=== PATIENT | female | born 1930 | race Caucasian/White ===

== ENCOUNTER 2017-02-06 21:53 | Inpatient (IN) | payer OTHER, BC ==
[~2017-02-06] VITALS: Ht 160 cm; Wt 67.9 kg
--- NOTE | ~2017-02-06 | HC ---
[facility] [place] [address] CONSULTATION Name: PETROS MCCAULEY Room #: 435-P [facility] IN ..#: [id number] Admission: 02/06/17 Attend Phys: Erickson Cam MD Discharge: Date of : 30 Report #: [id number] THIS REPORT FOR: //name// CC: Erickson Hinton DATE OF SERVICE: 02/07/2017 HISTORY OF PRESENT ILLNESS: The patient is an 86-year-old white female with a history of Parkinson's disease diagnosed approximately 6 months ago was nevertheless ambulatory without gait aids then began having falls x 2. She was noted to be letting her dog out and was too weak to stand. She had an earlier fall on a basement step and was nevertheless able to get herself backup. After the second fall, she ended up crawling on the floor and yelling for help. Denied any tripping. She was noted to have multiple bruises in knees, right chest, right orbit, forehead, and right arm. She has been admitted for further assessment and we are seeing her in rehabilitation medicine consultation. Right shoulder x-rays were negative as well as the knee, chest and the facial/orbital CT. CT of the head showed no acute intracranial process. There was note of a head injury, although no actual loss of consciousness. PAST MEDICAL HISTORY: Includes diagnosis of Parkinson's disease in July 2016. She has a history of diabetes mellitus, hypertension, hyperlipidemia, breast cancer with right lumpectomy, bladder CA with surgery, right arm fracture in 2014. MEDICATIONS: Please see the full medication listing. HABITS: No history of tobacco, alcohol abuse. ALLERGIES: SULFA. SOCIAL HISTORY: Lives in a house, one level 2 steps, used to walk just the last couple of days. There is a daughter who lives in the area and a son lives in [facility] area as well. REVIEW OF SYSTEMS: She has some right shoulder discomfort. Complains of generalized weakness. No chest pain, shortness of breath, or abdominal discomfort. PHYSICAL EXAMINATION: GENERAL: An 86-year-old white female in no obvious distress. HEENT: Some mild evidence of mass to facies, otherwise, facies appeared symmetric. VITAL SIGNS: Temperature is 98.2, pulse 88, respirations 24, blood pressure 134/63. [facility] [address] [place] [address] CONSULTATION Name: PETROS MCCAULEY Room #: 435-P [facility] IN .R.#: [id number] Admission: 02/06/17 Attend Phys: Erickson Cam MD Discharge: Date of : 30 Report #: [id number] NEUROLOGIC: She is alert, appropriate tends to favor moving that right upper extremity, has some overall soreness, I could not detect any obvious focal weakness, but was somewhat difficult to test with discomfort. No obvious focal weakness of left upper extremity. Lower extremities, no focal calf swelling. Strength is probably a grade 4- to 3+/5. She does have evidence for some cogwheeling of the elbow and wrists. ASSESSMENT: An 86-year-old white female with the following problem list: 1. Parkinson's disease. 2. Head injury without loss of assessments. 3. Gait instability with recent falls. 4. Multiple ecchymoses as noted above. 5. Diabetes mellitus type 2. 6. Hypertension. 7. Hyperlipidemia. 8. Breast carcinoma with right lumpectomy. 9. Prior right arm fracture, 2013. 10. Bladder cancer with surgery. PLAN: Therapy evaluations are underway. She is certainly may be a candidate for a short acute 5-North inpatient rehabilitation stay. At this point, we will see how she does in therapies and follow along with you. Discussion was held with the patient's daughter and son. By: [id number] Reen Miller MD /
[2017-02-06 21:55] VITALS: BP 105/66
[2017-02-06 23:28] LABS: HEMATOCRIT 31.8 % (37.0-47.0); HEMOGLOBIN 10.7 gm/dL (12.0-15.0); MCH 28.3 pg (26.0-34.0); MCHC 33.6 g/dL (28.0-37.0); MCV 84.2 fL (80.0-100.0); PLATELET COUNT 190 thou/uL (150-400); RBC 3.78 mil/uL (4.20-5.00); RDW 13.9 % (10.5-14.5); WBC 16.4 thou/uL (4.0-11.0)
[2017-02-06 23:39] LABS: POTASSIUM 4.3 mmol/L (3.5-5.1)
[2017-02-06 23:42] LABS: MANUAL DIFF YES
[2017-02-06 23:43] LABS: APTT 19.4 Seconds (24.5-32.8); PROTIME 10.1 Seconds (9.3-11.4)
[2017-02-07 00:11] LABS: ABSOLUTE NEUTROPHILS 14.1 thou/uL (1.4-8.2); METAMYELOCYTES 1 %; TOTAL CELL COUNT 100
[2017-02-07 00:20] VITALS: BP 137/84
[2017-02-07 04:56] VITALS: BP 122/64
[2017-02-07 05:09] LABS: URINE RBC None Seen /HPF (0-2); URINE WBC-REFLEX 0-5 Rare /HPF (0-5)
[2017-02-07 05:10] LABS: CRYSTALS None Seen /LPF (None Seen); HYALINE CASTS 0-3 Few /LPF (None Seen); SQUAMOUS None Seen /LPF (0-3); TRANSITIONAL EPITHEL CELL 0-3 Few /LPF (None Seen)
[2017-02-07 05:14] LABS: URINE BILIRUBIN NEGATIVE (Negative); URINE BLOOD TRACE (Negative); URINE COLOR YELLOW; URINE GLUCOSE-RANDOM* NEGATIVE (Negative); URINE KETONES TRACE (Negative); URINE PROTEIN (DIPSTICK) NEGATIVE (Negative); URINE SPECIFIC GRAVITY 1.015 (1.003-1.035); URINE UROBILINOGEN 0.2 E.U./dl (0.2-1.0)
[2017-02-07 05:16] LABS: URINE LEUKOCYTES-REFLEX 1+ (Negative)
[2017-02-07 08:00] VITALS: BP 134/63
[2017-02-07] MEDS ORDERED: LISINOPRIL-HCT1 EAC1 PO (09:54)
[2017-02-07] MEDS ORDERED: AMLODIPINE BESY10 MG PO ×2 (09:55→10:00)
[2017-02-07] MEDS ORDERED: JANUVIA 50 MG T50 M1 PO (09:56)
[2017-02-07] MEDS ORDERED: ATIVAN0.5 MG PO (09:57)
[2017-02-07] MEDS ORDERED: XALATAN2.5 ML OPHTHALMIC (09:58)
[2017-02-07] MEDS ORDERED: SINEMET 25-1001 EAC1 PO (09:58)
[2017-02-07] MEDS ORDERED: VITAMIN B-12500 MCG PO (10:01)
[2017-02-07] MEDS ORDERED: VITAMIN D2000 UNIT PO (10:02)
[2017-02-07] MEDS ORDERED: KLOR-CON 1010 MEQ PO (10:02)
[2017-02-07] MEDS ORDERED: REMERON15 MG PO (10:03)
[2017-02-07] MEDS ORDERED: PAMELOR25 MG PO (10:04)
[2017-02-07] MEDS ORDERED: METFORMIN HCL500 MG PO (10:05)
[2017-02-07] MEDS ORDERED: CRESTOR10 MG PO (10:06)
[2017-02-07 11:27] LABS: HEMATOCRIT 27.6 % (37.0-47.0); HEMOGLOBIN 9.5 gm/dL (12.0-15.0); MCH 29.1 pg (26.0-34.0); MCHC 34.6 g/dL (28.0-37.0); MCV 84.1 fL (80.0-100.0); RBC 3.28 mil/uL (4.20-5.00); WBC 8.5 thou/uL (4.0-11.0)
[2017-02-07 11:35] LABS: CALCIUM 8.4 mg/dL (8.5-10.1); CREATININE 1.2 mg/dL (0.6-1.0)
[2017-02-07 11:37] LABS: POTASSIUM 3.3 mmol/L (3.5-5.1)
[2017-02-07 15:52] VITALS: BP 124/53
[2017-02-07 17:45] LABS: MAGNESIUM 1.4 mg/dL (1.8-2.4); POTASSIUM 3.7 mmol/L (3.5-5.1)
[2017-02-07 19:39] VITALS: BP 131/61
[2017-02-08 01:15] VITALS: BP 124/53
[2017-02-08 04:01] VITALS: BP 134/62
[2017-02-08 06:53] LABS: HEMATOCRIT 29.5 % (37.0-47.0); HEMOGLOBIN 9.9 gm/dL (12.0-15.0); MCH 28.7 pg (26.0-34.0); MCHC 33.6 g/dL (28.0-37.0); MCV 85.3 fL (80.0-100.0); PLATELET COUNT 164 thou/uL (150-400); RBC 3.46 mil/uL (4.20-5.00); RDW 13.9 % (10.5-14.5); WBC 7.5 thou/uL (4.0-11.0)
[2017-02-08 06:58] LABS: MANUAL DIFF YES
[2017-02-08 07:00] LABS: CALCIUM 7.9 mg/dL (8.5-10.1); CREATININE 1.1 mg/dL (0.6-1.0); MAGNESIUM 1.4 mg/dL (1.8-2.4); POTASSIUM 3.7 mmol/L (3.5-5.1)
[2017-02-08 08:00] VITALS: BP 146/66
[2017-02-08 08:50] LABS: TOTAL CELL COUNT 100
[2017-02-08 08:51] LABS: ANISOCYTOSIS 1+
[2017-02-08] MEDS ORDERED: HUMALOG100 UNIT/1 SUBQ (11:28)
[2017-02-08] MEDS ORDERED: ROCEPHIN 11 GM/1001 IV (11:29)
== END 2017-02-08 14:47 | DRG 56 ==
LOC: ER 21:53 → 4S 23:21 → EROBS 23:21 → 4S 02-07 00:05
PROVIDERS: Emergency Medicine; Internal Medicine; Nurse Practitioner Family
DX: G20 Parkinson's disease (principal); E43 Unspecified severe protein-calorie malnutrition; N17.0 Acute kidney failure with tubular necrosis; E11.9 Type 2 diabetes mellitus without complications; I10 Essential (primary) hypertension; S09.90XA Unspecified injury of head, initial encounter; D72.829 Elevated white blood cell count, unspecified; T14.8 Other injury of unspecified body region; D72.825 Bandemia; R58 Hemorrhage, not elsewhere classified; E78.5 Hyperlipidemia, unspecified; Z85.3 Personal history of malignant neoplasm of breast; Z87.81 Personal history of (healed) traumatic fracture; Z88.2 Allergy status to sulfonamides; W10.8XXA Fall (on) (from) other stairs and steps, initial encounter; Y93.89 Activity, other specified; Y92.89 Other specified places as the place of occurrence of the external cause; Y99.8 Other external cause status
CPT/HCPCS: 10195

== ENCOUNTER 2017-02-08 11:34 | Inpatient (IN) | payer OTHER, BC ==
[~2017-02-08] VITALS: Ht 160 cm; Wt 69.0 kg
--- NOTE | ~2017-02-08 | PLAN ---
[facility] [place] [address] [address] REHAB UNIT PLAN OF CARE Name: MCCAULEYPETROS Room #: 510-P [facility] IN M.R.#: [id number] Admission: 02/08/17 Attend Phys: Rene Miller MD Discharge: 02/21/17 Date of : 30 Report #: [id number] THIS REPORT FOR: //name// CC: Rene Saueruel [facility] DATE OF SERVICE: 02/11/2017 SUBJECTIVE: The patient is seen back today in followup. She is in no distress. OBJECTIVE: VITAL SIGNS: Temperature 36.8, pulse 85, respirations 16, blood pressure 132/69. GENERAL: She is alert, pleasant. EXTREMITIES: She feels that that right upper extremity discomfort has improved. She appears more alert. Transfers are contact guard. She is now ambulating 250 feet min assist with a front-wheeled walker. We have started to work on some stairs. In occupational therapy, lower body dressing has been max assist with socks and hose dependent. In speech therapy, she is noted to have mild comprehensive deficits. She has been on the IV antibiotics for urinary tract infection and magnesium has been supplementation. ASSESSMENT: 1. Parkinson's disease. 2. Head injury without loss of consciousness. 3. Gait instability with recent falls. 4. Multiple ecchymoses. 5. Diabetes mellitus type 2. 6. Hypertension. 7. Hyperlipidemia. 8. Breast cancer with right lumpectomy. 9. Prior right arm fracture in 2013. PLAN: The overall plan of care is based on the preadmission screen, post-admission physician evaluation and information garnered from therapy assessments. 1. Estimated length of stay is probably 7-14 days. 2. Medical prognosis is reasonably good. 3. Anticipated interventions includes the interdisciplinary acute inpatient rehabilitation program with PT and OT and speech, rehabilitation nursing assisting regarding medication management, skin care prophylaxis, bowel and bladder issues and nursing education. The men's custom hair piece consultant physicians will be involved. 4. Anticipated functional outcomes would be for the patient to ideally be modified independent at the walker level. 5. Discharge destination would be back home where she lives in a house. [facility] [address] [place] [address] REHAB UNIT PLAN OF CARE Name: PETROS MCCAULEY Room #: 510-P [facility] IN ..#: [id number] Admission: 02/08/17 Attend Phys: Rene Miller MD Discharge: 02/21/17 Date of : 30 Report #: [id number] 6. Expected therapy by discipline includes PT and OT and speech 1 hour per day each five days a week throughout the duration of the acute inpatient rehabilitation stay. By: [id number] [id number] Rene Miller MD /EFREN
--- NOTE | ~2017-02-08 | H ---
[facility] [place] [address] [place] [address] HISTORY AND PHYSICAL Name: MCCAULEYEPTROS Room #: 510-P [facility] IN .R.#: [id number] Admission: 02/08/17 Attend Phys: Rene Miller MD Discharge: 02/21/17 Date of : 30 Report #: [id number] THIS REPORT FOR: //name// CC: Rene Hinton DATE OF SERVICE: 02/09/2017 HISTORY AND PHYSICAL AND POSTADMISSION PHYSICIAN EVALUATION HISTORY OF PRESENT ILLNESS: The patient is an 86-year-old white female with a history of Parkinson's disease diagnosed approximately 6 months ago, was nevertheless ambulatory without gait aids, then began having falls x 2. She was noted to be letting her dog out and was too weak to stand. She had an earlier fall on a basement step and was nevertheless able to get herself back up at that time. After the second fall; however, she ended up crawling on the floor and yelling for help. Denied any tripping. She was noted to have multiple bruises on her knees, right chest, right forehead and right arm. She was admitted for further assessment. Shoulder x-rays were negative as well as the knee, chest and facial orbital CT. CT of the head showed no acute intracranial process. There was note of a head injury, although no actual loss of consciousness. The patient was noted to have a significant decline with her functional mobility and ADL independence with her Parkinson's disease and gait instability and falls. She has been admitted for acute in-hospital inpatient rehabilitation. PAST MEDICAL HISTORY: Includes the diagnosis of Parkinson's disease in 07/2016. She has a history of diabetes mellitus, hypertension, hyperlipidemia, breast cancer with right lumpectomy, bladder CA with surgery and right arm fracture in 2013. MEDICATIONS: Each of the medications was individually reconciled upon admission. The list does include vitamins, herbals and supplementation, etc. HABITS: No history of tobacco or alcohol abuse. ALLERGIES: SULFA. SOCIAL HISTORY: Lives in a house, one level, two steps. Has used a walker just the last couple of days prior to admission. There is a daughter who lives in the area and a son that lives in the [facility] area as well. REVIEW OF SYSTEMS: She still has some generalized aching involving her right upper extremity and lower extremities from the crawling on the floor. She denies any chest pain, shortness of breath, no abdominal discomfort. She did not offer any complaints of any bowel or bladder changes. [facility] [address] [place] [address] HISTORY AND PHYSICAL Name: PETROS MCCAULEY Room #: 510-P [facility]#: [id number] Admission: 02/08/17 Attend Phys: Rene Miller MD Discharge: 02/21/17 Date of : 30 Report #: [id number] PHYSICAL EXAMINATION: GENERAL: An 86-year-old white female, in no obvious distress. The patient was seen earlier. She was sleepy, but would arouse. VITAL SIGNS: Temperature 98.4, pulse 85, respirations 16, blood pressure 131/72. The patient was seen earlier. She was sleepy, but would arouse. HEENT: Facies revealed some evidence of mass, appeared symmetric. CHEST: Sounded clear to auscultation. CARDIOVASCULAR: Regular rate and rhythm. ABDOMEN: Bowel sounds positive, nontender. GENITOURINARY AND RECTAL: Deferred. NEUROLOGICAL: She still has some discomfort with moving the right upper extremity with some overall soreness. No obvious focal weakness. No obvious focal weakness to the left upper. Lower extremities, no focal calf swelling with strength probably a grade 3+ to 4-. She continues with some cogwheeling, elbows and wrists. ASSESSMENT: An 86-year-old white female with the following problem list: 1. Parkinson's disease. 2. Head injury with loss of ____. 3. Gait instability with recent falls. 4. Multiple ecchymoses. 5. Diabetes mellitus type 2. 6. Hypertension. 7. Hyperlipidemia. 8. Breast carcinoma with right lumpectomy. 9. Prior right arm fracture in 2013. 10. Bladder cancer with surgery. PLAN: The patient is admitted for acute in-hospital inpatient rehabilitation. From a postadmission physician evaluation perspective, there are no relevant changes since the preadmission screening. Please see the above review of prior and current medical and functional conditions and comorbidities. Please see the patient's previous and current functional status. As far as risk of complication, she has the above noted comorbidities. Initial plan of care involves the interdisciplinary acute inpatient rehabilitation program with the goal of maximizing the patient's functional independence, so that she can hopefully return back to her prior living situation. Measurable functional goals would be for her to become modified independent ideally at least at the walker level, so that she can return back home. Prognosis is reasonably good. Estimated length of stay is probably at least 10 days to 2 weeks pending progress. Potential barriers would include her multiple medical comorbidities and decreased functional status. The patient meets diagnostic criteria for an acute in-hospital inpatient rehabilitation stay. She meets medical necessity criteria and we will have the ada accommodation consultant physicians follow along. She does have the tolerance for an acute [facility] [address] [place] [address] HISTORY AND PHYSICAL Name: PETROS MCCAULEY Room #: 510-P [facility] IN M.R.#: [id number] Admission: 02/08/17 Attend Phys: Rene Miller MD Discharge: 02/21/17 Date of : 30 Report #: [id number] in-hospital inpatient rehabilitation stay and has appropriate discharge goals back to the home setting. By: [id number] Rene Miller MD /EFREN
--- NOTE | ~2017-02-08 | HC ---
[facility] [place] [address] CONSULTATION Name: PETROS MCCAULEY Room #: 510-P [facility] IN .R.#: [id number] Admission: 02/08/17 Attend Phys: Rene Miller MD Discharge: Date of : 30 Report #: [id number] THIS REPORT FOR: //name// CC: Rene Miller Thuan Speedyidania DATE OF SERVICE: 02/09/2017 NEUROBEHAVIORAL STATUS EXAM AGE: 86. ATTENDING PHYSICIAN: Rene Miller M.D. TABLE GAMES DUAL RATE SUPERVISOR: Stanislav Dennis, PhD CLINICAL PRESENTATION: The patient is an 86-year-old female admitted to the rehabilitation unit at [facility] for comprehensive inpatient rehabilitation program to improve functional mobility, activities of daily living and self-care and mental status secondary to concussion as a result of a Parkinson's disease. The patient reportedly had been falling at her home. Most recently, she fell backward when letting her dog out of the house. The patient struck the back of her head and struggled in obtaining help. She does not report retrograde or anterograde amnesia surrounding her fall. Her past medical history includes Parkinson's diagnosis on 07/30/2016, diabetes mellitus, hypertension, hyperlipidemia, breast cancer with right lumpectomy, bladder CA with surgery and a right arm fracture in 2013. A complete description of her medical condition and history along with medications can be found in her medical record. Neuropsychological consultation was requested to provide assistance in the assessment of cognitive and emotional status and to provide recommendations and services. Prior to this most recent event, she was living independently in her own home. The patient reports being independent with instrumental activities of daily living. She was driving and managing her finances and medication. She has five children. Her about 8 years ago. Four children live within the [place] area. 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 There is no prior history of cognitive deficits. Previous treatment for depression is reported in 1996 following the diagnosis of breast cancer. TECHNIQUES UTILIZED: Clinical interview, review of medical records, staff consultation and behavioral observation, mini mental status exam 2 standard version, clock drawing, calibrated ideational fluency assessment (letter and category) and brief abstract reasoning test. [facility] [address] [place] [address] CONSULTATION Name: PETROS MCCAULEY Room #: 510-P [facility] IN [facility].#: [id number] Admission: 02/08/17 Attend Phys: Rene Miller MD Discharge: Date of : 30 Report #: [id number] EXAMINATION FINDINGS: The patient was alert and cooperative with the assessment. She accurately described events surrounding her admission. There is no evidence of aphasia. Her thoughts are logical and goal oriented. She does not report auditory or visual hallucinations. She describes feeling discouraged and in quite a bit of pain at this time. Difficulty with word finding, decreased appetite and fatigue are reported. She indicates that sleep and memory are within normal limits. Her performance on the MMSE 2 brief version was in the mild range of impairment with a raw score of 13 of 16 and a score at 38. She was 3/3 for initial registration, 5/5 for orientation to time and 5/[address]. She was 0/3 for immediate recall of 3 items after a brief time delay and distraction. Her performance on the MMSE 2 standard version was in the mild range of impairment with a raw score of 23 and T score at 36. She was 2/5 for serial sevens. The patient was 2/2 for naming, 1/1 for repetition and 3/3 for comprehension. She could read and follow a single command and write a sentence. The patient was unable to copy a simple geometric design. Performance on verbal fluency indicates functioning within normal limits. Letter fluency was in the average range with a T score of 44, category fluency was average with a T score of 45, total verbal fluency score was 44, which is in the average range. Brief abstract reasoning test suggest impairment with a raw score at 2 of 8. Difficulty with attention/concentration, immediate memory and higher level abstract reasoning is suggested by her performance on the assessment. 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 RECOMMENDATIONS: Continued speech therapy to assist with development and implementation of compensatory strategies for memory, attention and concentration. She will benefit from increased assistance in the management of nutrition, medication and finances upon discharge. The patient should discontinue driving until and more full recovery is achieved. Followup neuropsychological evaluation in approximately 3-6 months to clarify any lingering symptoms of cognitive disorder. Reassurance along with relaxation techniques will assist in the management of anxiety. [address] [address] CONSULTATION Name: PETROS MCCAULEY Room #: 510-P [facility] IN M.R.#: [id number] Admission: 02/08/17 Attend Phys: Rene Miller MD Discharge: Date of : 30 Report #: [id number] Thank you very much for allowing me to provide the consultation on this patient. <ELECTRONICALLY SIGNED> By: Stanislav Dennis, PhD 02/10/17 1409 1335 [id number] Stanislav Dennis, PhD /nt
[~2017-02-08 11:34] MED LIST: AMLODIPINE BESY10 MG PO; ATIVAN0.5 MG PO; CRESTOR10 MG PO; HUMALOG100 UNIT/1 SUBQ; JANUVIA 50 MG T50 M1 PO; KLOR-CON 1010 MEQ PO; LISINOPRIL-HCT1 EAC1 PO; METFORMIN HCL500 MG PO; PAMELOR25 MG PO; REMERON15 MG PO; ROCEPHIN 11 GM/1001 IV; SINEMET 25-1001 EAC1 PO; VITAMIN B-12500 MCG PO; VITAMIN D2000 UNIT PO; XALATAN2.5 ML OPHTHALMIC
[2017-02-08 14:10] VITALS: BP 145/72
[2017-02-08 19:48] VITALS: BP 131/72
[2017-02-09 06:02] LABS: HEMATOCRIT 28.7 % (37.0-47.0); HEMOGLOBIN 9.8 gm/dL (12.0-15.0); MCH 28.7 pg (26.0-34.0); MCHC 33.9 g/dL (28.0-37.0); MCV 84.6 fL (80.0-100.0); RBC 3.4 mil/uL (4.20-5.00); RDW 14.1 % (10.5-14.5); WBC 6.2 thou/uL (4.0-11.0)
[2017-02-09 06:12] LABS: CALCIUM 8.3 mg/dL (8.5-10.1); MAGNESIUM 1.6 mg/dL (1.8-2.4); POTASSIUM 3.6 mmol/L (3.5-5.1)
[2017-02-09 19:39] VITALS: BP 120/62
[2017-02-10 08:30] VITALS: BP 131/66
[2017-02-10 19:43] VITALS: BP 128/57
[2017-02-11 07:56] VITALS: BP 132/69
[2017-02-11 19:30] VITALS: BP 132/67
[2017-02-12 09:00] VITALS: BP 126/73
[2017-02-12 21:05] VITALS: BP 132/63
[2017-02-13 08:26] VITALS: BP 126/61
[2017-02-13 09:09] LABS: ABSOLUTE NEUTROPHILS 5.3 thou/uL (1.4-8.2); BASOPHILS 0.7 % (0.0-2.0); EOSINOPHILS 3.9 % (0.0-3.0); HEMATOCRIT 27.6 % (37.0-47.0); HEMOGLOBIN 9.5 gm/dL (12.0-15.0); LYMPHOCYTES 11.1 % (24.0-44.0); MCHC 34.4 g/dL (28.0-37.0); MCV 84.2 fL (80.0-100.0); MONOCYTES 10.6 % (1.0-8.0); PLATELET COUNT 235 thou/uL (150-400); POLYS 73.7 % (36.0-66.0); RBC 3.28 mil/uL (4.20-5.00); RDW 14.2 % (10.5-14.5); WBC 7.1 thou/uL (4.0-11.0)
[2017-02-13 09:12] LABS: MANUAL DIFF NO
[2017-02-13 09:21] LABS: CALCIUM 9.2 mg/dL (8.5-10.1); CREATININE 1.2 mg/dL (0.6-1.0); POTASSIUM 3.9 mmol/L (3.5-5.1)
[2017-02-13 20:02] VITALS: BP 126/69
[2017-02-14 22:32] VITALS: BP 126/63
[2017-02-15 08:00] VITALS: BP 120/57
[2017-02-15 21:07] VITALS: BP 136/74
[2017-02-16 07:59] VITALS: BP 137/61
[2017-02-16 20:31] VITALS: BP 126/69
[2017-02-17 10:57] VITALS: BP 121/51
[2017-02-17 19:15] VITALS: BP 128/63
[2017-02-18 04:00] LABS: HEMATOCRIT 28.3 % (37.0-47.0); HEMOGLOBIN 9.6 gm/dL (12.0-15.0); MCV 85.3 fL (80.0-100.0); PLATELET COUNT 218 thou/uL (150-400); RBC 3.32 mil/uL (4.20-5.00); RDW 14.6 % (10.5-14.5); WBC 7.4 thou/uL (4.0-11.0)
[2017-02-18 04:03] LABS: MANUAL DIFF YES
[2017-02-18 04:08] LABS: CALCIUM 8.6 mg/dL (8.5-10.1); CREATININE 1.2 mg/dL (0.6-1.0); POTASSIUM 3.4 mmol/L (3.5-5.1)
[2017-02-18 08:28] LABS: ABSOLUTE NEUTROPHILS 5.4 thou/uL (1.4-8.2); TOTAL CELL COUNT 100
[2017-02-18 08:29] LABS: ANISOCYTOSIS SLIGHT; POIKILOCYTOSIS SLIGHT
[2017-02-18 08:32] VITALS: BP 134/60
[2017-02-18 19:56] VITALS: BP 112/61
[2017-02-19 06:06] VITALS: BP 119/64; BP 122/68; BP 98/53
[2017-02-19 09:20] VITALS: BP 121/61
[2017-02-19 20:32] VITALS: BP 130/70
[2017-02-20 17:13] VITALS: BP 130/70
[2017-02-20 20:09] VITALS: BP 124/66
[2017-02-21 08:33] VITALS: BP 146/77
[2017-02-21] MEDS ORDERED: METFORMIN HCL500 MG PO (09:11)
[2017-02-21] MEDS ORDERED: COLACE100 MG PO (09:11)
[2017-02-21] MEDS ORDERED: REGLAN 10 MG TA10 MG PO (09:11)
[2017-02-21] MEDS ORDERED: MIRALAX17 GM PO (09:11)
[2017-02-21 10:28] VITALS: BP 130/70
== END 2017-02-21 15:39 | disposition home health service (06) | DRG 57 ==
LOC: ENTRNSPT 02-21 15:25 → EDTRNSPTSTS 02-21 15:27
PROVIDERS: Internal Medicine Endocrinology, Diabetes & Metabolism; Nurse Practitioner; Physical Medicine & Rehabilitation
DX: G20 Parkinson's disease (principal); N39.0 Urinary tract infection, site not specified; E11.9 Type 2 diabetes mellitus without complications; E78.5 Hyperlipidemia, unspecified; G31.84 Mild cognitive impairment of uncertain or unknown etiology; F43.22 Adjustment disorder with anxiety; S06.9X0A Unspecified intracranial injury without loss of consciousness, initial encounter; I10 Essential (primary) hypertension; H11.30 Conjunctival hemorrhage, unspecified eye; R26.81 Unsteadiness on feet; F32.9 Major depressive disorder, single episode, unspecified; E83.42 Hypomagnesemia; K59.00 Constipation, unspecified; Z85.3 Personal history of malignant neoplasm of breast; Z85.51 Personal history of malignant neoplasm of bladder; Y93.89 Activity, other specified; Y92.89 Other specified places as the place of occurrence of the external cause; Y99.8 Other external cause status; Z87.81 Personal history of (healed) traumatic fracture; Z91.81 History of falling; Z88.2 Allergy status to sulfonamides; Z83.3 Family history of diabetes mellitus
CPT/HCPCS: 10112

== ENCOUNTER 2018-10-30 10:17 | Inpatient (IN) | payer OTHER, BC ==
[~2018-10-30] VITALS: Ht 160 cm; Wt 65.8 kg
--- NOTE | ~2018-10-30 | HC ---
[facility] [place] [address] [place] [address] CONSULTATION Name: PETROS MCCAULEY Room #: 463-P [facility] IN ..#: [id number] Admission: 10/30/18 ������������������ Attend Phys: Erickson Cam MD Discharge: ������������������ Date of : 30 Report #: [id number] THIS REPORT FOR: //name// CC: Erickson Hinton DATE OF SERVICE: 11/04/2018 HISTORY OF PRESENT ILLNESS: The patient is an 88-year-old white female with a history of Parkinson's disease, diabetes mellitus, and hypertension. She is a premorbid walker ambulator with her Parkinson's. She did have a fall at home, landed on her back. She complained of significant mid lower back pain. She underwent imaging revealing subacute T5 compression fracture, chronic T7 and L4 compression fractures. She is currently scheduled for a kyphoplasty with Interventional Radiology. She has had increased low back pain and could not ambulate. It sounds like the back pain is doing somewhat better as she has done some limited ambulation with therapy. She has had an overall functional decline and we are seeing her in rehabilitation medicine consultation. PAST MEDICAL HISTORY: Includes Parkinson's disease diagnosed in July 2016, history of hypertension, hyperlipidemia, diabetes mellitus type 2, breast cancer with right lumpectomy. She has had bladder cancer with surgery. Denies any problems with voiding currently. She had a prior right arm fracture in 2013. MEDICATIONS: Please see the full medication listing, this includes vitamins, herbals, and supplements per report. ALLERGIES: SULFA. SOCIAL HISTORY: She lives in a house alone, 2 steps in. She used a walker. She does have involved family. She notes that she would be by herself and would need to be independent prior to returning back home. HABITS: No history of tobacco or alcohol abuse. REVIEW OF SYSTEMS: No current complaints of chest pain, shortness of breath or abdominal discomfort. She does have the low back pain as noted. She does have some gait problems with her Parkinson's. PHYSICAL EXAMINATION: GENERAL: She is a pleasant 88-year-old white female, in no obvious distress. She does have some evidence of masked facies. She appears appropriate and appears to be a good historian. VITAL SIGNS: Temperature 98.2, pulse 86, respirations 18, blood pressure 160/89. NEUROMUSCULOSKELETAL: Alert. She does have some evidence of cogwheeling of [facility] [address] [place] [address] CONSULTATION Name: PETROS MCCAULEY Room #: 463-P [facility] IN ..#: [id number] Admission: 10/30/18 ������������������ Attend Phys: Erickson Cam MD Discharge: ������������������ Date of : 30 Report #: [id number] both upper extremities, functional range of motion, strength is probably a grade 4-/5 to 3+/5. Lower extremities with functional range of motion, strength is probably a grade 3+ to 4-. Tone appeared to be intact. There is some rigidity noted. She moves somewhat slowly, but has been able to sit to stand with mod assist and ambulates up to 20 feet min assist x 2 with a front-wheeled walker. ASSESSMENT: An 88-year-old white female with the following problem list: 1. Parkinson's disease. 2. Compression fractures T5, T7. She is being evaluated for potential kyphoplasty. 3. Gait instability with falls. 4. Recent fall with inability to ambulate. She is now starting to do better. 5. Diabetes mellitus. 6. Hypertension. 7. History of breast cancer. 8. Bladder cancer with surgery. PLAN: Would anticipate that the patient would be a good candidate for an acute inpatient rehabilitation stay. We are seeing what will happen as far as her compression fractures and whether she will undergo a procedure for this or not. The patient appears amenable to an acute in-hospital inpatient rehabilitation stay, but again, we will see what happens as far as any further intervention as noted above. ��������������������������������������������� ���������������������������������������� By: ��������������������������������������������� 1205 0331 Rene Miller MD /nt
[~2018-10-30 10:17] MED LIST changes: +COLACE100 MG PO; +MIRALAX17 GM PO; +REGLAN 10 MG TA10 MG PO
[2018-10-30 10:31] VITALS: BP 159/77
[2018-10-30 14:25] LABS: HEMATOCRIT 35.7 % (37.0-47.0); HEMOGLOBIN 11.7 gm/dL (12.0-15.0); MCH 27.4 pg (26.0-34.0); MCHC 32.8 g/dL (28.0-37.0); MCV 83.5 fL (80.0-100.0); RBC 4.27 mil/uL (4.20-5.00); RDW 14.4 % (10.5-14.5); WBC 11.5 thou/uL (4.0-11.0)
[2018-10-30 14:38] LABS: ANION GAP 14 mmol/L (7-16); BUN 19 mg/dL (7-18); CALCIUM 9.3 mg/dL (8.5-10.1); CHLORIDE 104 mmol/L (98-107); CO2 24 mmol/L (21-32); CREATININE 1.2 mg/dL (0.6-1.0); GLUCOSE 146 mg/dL (74-106); POTASSIUM 3.5 mmol/L (3.5-5.1); SODIUM 142 mmol/L (136-145)
[2018-10-30 14:42] LABS: APTT 26.8 Seconds (24.5-32.8); PROTIME 10.3 Seconds (9.3-11.4)
[2018-10-30 14:43] LABS: ALBUMIN 3.6 g/dL (3.4-5.0); SGOT 18 U/L (15-37); SGPT 10 U/L (30-65); TOTAL BILIRUBIN 0.3 mg/dL (<0.1-1.0); TOTAL PROTEIN 7.3 g/dL (6.4-8.2); TROPONIN-I <0.06 ng/mL (<0.06)
[2018-10-30 15:18] VITALS: BP 151/78
--- NOTE | 2018-10-30 16:19 | EKG ---
[place] [address] [facility] [place] [address] ELECTROCARDIOGRAM REPORT Name: PETROS MCCAULEY Room #: 170-9 ADM IN M.R.#: [id number] ������������������ Admission: 10/30/18 ������������������ Attend Phys: Erickson Cam MD Discharge: ������������������ Date of : 30 Report #: [id number] ����������������������������������������������������������������� [id number] THIS REPORT FOR: //name// [facility] ED Test Date: 2018-10-30 Test Time: 14:59:18 Pat Name: PETROS MCCAULEY Department: Room: 170 Gender: F Sales Technician: Elizabet SHULTZ RN : 1930 Requested By: Gutierrez Banda Order Number: [id number] MD: Yared Gongora Measurements Intervals [place] Rate: 94 P: 21 [place]: 149 QRS: -6 QRSD: 112 T: 34 QT: 390 QTc: 488 Interpretive Statements Sinus rhythm Left ventricular hypertrophy Borderline prolonged QT interval No previous ECG available for comparison Electronically Signed On 10-30-2018 16:19:17 CDT by Yared Gongora [email or web address] ��������������������������������������������� <ELECTRONICALLY SIGNED> ���������������������������������������� By: Yared Gongora MD ��������������������������������������������� 10/30/18 1619 1459 1459 Yared Gongora MD /FILEMON
[2018-10-30 16:34] VITALS: BP 157/83
[2018-10-30 16:48] LABS: URINE BILIRUBIN NEGATIVE (Negative); URINE BLOOD NEGATIVE (Negative); URINE CLARITY CLEAR; URINE COLOR YELLOW; URINE GLUCOSE-RANDOM* NEGATIVE (Negative); URINE KETONES NEGATIVE (Negative); URINE LEUKOCYTES-REFLEX TRACE (Negative); URINE NITRITE-REFLEX NEGATIVE (Negative); URINE PROTEIN (DIPSTICK) NEGATIVE (Negative); URINE SPECIFIC GRAVITY 1.015 (1.005-1.035); URINE UROBILINOGEN 0.2 E.U./dl (0.2-1.0)
[2018-10-30 17:00] VITALS: BP 160/77
--- NOTE | 2018-10-30 18:03 | NUR ---
ASSUMED CARE OF PT ON 4W AT 1700. PT A&OX4, VSS, PAIN IN BACK AT INTENSITY LEVEL 6. PT DENIES CHEST PAIN, SHORTNESS OF AIR, N/V/D. PAIN BEING MANAGED WITH MEDICATION. PT ON HEART HEALTHY DIET UNTIL MIDNIGHT, WHEN SHE WILL BE NPO FOR AN MRI IN THE MORNING. FALL BUNDLE IN PLACE, WILL CONTINUE TO MONITOR.
[2018-10-30 19:56] VITALS: BP 153/77
[2018-10-31 04:06] VITALS: BP 132/75
[2018-10-31 05:40] LABS: HEMATOCRIT 33.1 % (37.0-47.0); HEMOGLOBIN 10.8 gm/dL (12.0-15.0); MCH 27.5 pg (26.0-34.0); MCHC 32.8 g/dL (28.0-37.0); RBC 3.94 mil/uL (4.20-5.00); RDW 14.4 % (10.5-14.5); WBC 7.5 thou/uL (4.0-11.0)
[2018-10-31 05:52] LABS: CALCIUM 8.1 mg/dL (8.5-10.1); CREATININE 1.1 mg/dL (0.6-1.0); POTASSIUM 4.1 mmol/L (3.5-5.1)
--- NOTE | 2018-10-31 06:50 | NUR ---
Assumed care at 1845. Pt seating in chair. Had a hard time laying down in bed because of back pain. VSS. AOX4. NPO since midnight. No identified needs at the moment. Will continue to monitor.
[2018-10-31 08:20] VITALS: BP 140/73
--- NOTE | 2018-10-31 15:02 | NUR ---
PT ADMITTED RELATED TO BACK PAIN. CM REVIEWED CHART AND SPOKE WITH CARE TEAM. CM MET WITH PT AT BEDSIDE THIS DAY. PT IS A&O X4. CM ROLE INTRODUCED. PT INDICATED SHE LIVES ALONE IN A HOUSE ALONE WITH 2 STEPS TO ENTER AND NO STEPS INSIDE. PT INDICATED SHE HAD A 4WW TO ASSIST WITH MOBILITY SUPERVISOR WEBBING. PT INDICATED SHE HAD [facility] IN THE PAST. PT INDICATED SHE ANTICPATES RETURNING HOME ONCE MEDICALLY STABLE. CM TO FOLLOW INDICATED WITH DC PLANNING.
[2018-10-31 16:18] VITALS: BP 144/79
[2018-10-31 19:28] VITALS: BP 143/68
--- NOTE | 2018-10-31 20:41 | NUR ---
PT A&OX4, VSS, NO SIGNS OF DISTRESS, PAIN CONSTANT IN UPPER BACK MANAGED WITH MEDICATION. MRI COMPLETED TODAY. FAMILY IN TO VISIT. FALL BUNDLE IN PLACE. WILL CONTINUE TO MONITOR.
[2018-11-01 04:29] VITALS: BP 145/74
--- NOTE | 2018-11-01 04:45 | NUR ---
ASSUMED CARE OF PT AT 1900HRS. PT AOX4 AND WAS ABLE TO SLEEP PART OF THE SHIFT. PT DID COMPLAIN OF SOME BACK PAIN AND NAUSEA. PT WAS MEDICATED ACCORDINGLY. NO OTHER S/S OF ACUTE DISTRESS. WILL CONTINUE TO MONITOR.
[2018-11-01 08:00] VITALS: BP 149/71
--- NOTE | 2018-11-01 12:36 | NUR ---
TOWARDS POC PT A/O X4, VSS, AFEBRILE, NO NV, NO SOA. PAIN MANAGED BY MEDS. PT/OT ABLE TO WORK WITH HER. NO CONCERNS VOICED. WILL CONTINUE TO MONITOR.
[2018-11-01 15:00] VITALS: BP 159/77
[2018-11-01 19:41] VITALS: BP 146/78
--- NOTE | 2018-11-02 02:51 | NUR ---
ASSUMED CARE OF PT AT 1900HRS. PT IS AOX4 AND WAS SITTING TON A RECLINER PART OF THE SHIFT. PT DID COMPLAIN OF BACK PAIN AND WAS MANAGED WITH MEDICATION. NO OTHER S/S OF ACUTE DISTRESS. WILL CONTINUE TO MONITOR.
[2018-11-02 05:04] VITALS: BP 160/77
[2018-11-02 07:40] VITALS: BP 149/77
--- NOTE | 2018-11-02 13:15 | NUR ---
TOWARDS POC PT VSS, AFEBRILE, PAIN MANAGED BY MEDS, FALL BUNDLE IN PLACE. WILL CONTINUE TO MONITOR.
[2018-11-02 14:15] VITALS: BP 133/71
[2018-11-03 02:56] VITALS: BP 161/81
--- NOTE | 2018-11-03 05:22 | NUR ---
Pt. rested quietly at intervals during the night when checked on during frequent rounds. She did c/o back pain and was given po pain meds (see emar) with some relief noted. Up in recliner chair this am per her request and chair alarm is on.
[2018-11-03 08:00] VITALS: BP 158/78
--- NOTE | 2018-11-03 11:40 | NUR ---
TOWARDS POC PT A/O X4, VSS, AFEBRILE, PAIN MANAGED BY MEDS. NO CONCERNS VOICED. WILL CONTINUE TO MONITOR.
[2018-11-03 15:00] VITALS: BP 159/77
[2018-11-03 20:13] VITALS: BP 124/69
[2018-11-04 03:54] VITALS: BP 157/81
--- NOTE | 2018-11-04 04:19 | NUR ---
Pt. rested quietly at intervals during the night when checked on during frequent rounds. She c/o chronic back pain and was given po pain meds (see emar) with some relief noted. Ambulated to the bathroom with assistance and did well. Bed alarm is on.
[2018-11-04 09:09] VITALS: BP 164/89
[2018-11-04 15:16] VITALS: BP 150/75
--- NOTE | 2018-11-04 15:42 | NUR ---
CARE TEAM INDICATED THAT PT IS SCHEDULED TO HAVE A KYPHOPLASTY TOMORROW Saturday11/05/18. [facility] INDICATED THAT THEY ARE ABLE TO ACCEPT PT ONCE MEDICALLY STABLE. CM TO FOLLOW INDICATED WITH DC PLANNING.
[2018-11-04 19:37] VITALS: BP 126/62
[2018-11-05 03:16] VITALS: BP 152/68
--- NOTE | 2018-11-05 03:25 | NUR ---
PT RESTED GOOD, ON ROOM AIR, ALERT/ORIENTED X4, PAIN CONTROLLED BY NORCO, NPO FOR KYPOPLASTY TODAY, VOIDING IN THE TOILET WITH ASSIST OF ONE, TOLERATED SCDS TONIGHT, MONITORED FOR HYPO/HYPERGLYCEMIA, DENIES SOB, CONSENT FOR PROCEDURE SIGNED, HOURLY ROUNDING, MONITORED.
[2018-11-05 06:02] LABS: HEMATOCRIT 30.6 % (37.0-47.0); HEMOGLOBIN 10.2 gm/dL (12.0-15.0); MCH 27.6 pg (26.0-34.0); MCHC 33.2 g/dL (28.0-37.0); MCV 83.2 fL (80.0-100.0); RBC 3.68 mil/uL (4.20-5.00); RDW 14.5 % (10.5-14.5); WBC 5.6 thou/uL (4.0-11.0)
[2018-11-05 06:20] LABS: CALCIUM 8.6 mg/dL (8.5-10.1); POTASSIUM 3.2 mmol/L (3.5-5.1)
[2018-11-05 07:09] VITALS: BP 149/74
--- NOTE | 2018-11-05 10:00 | NUR ---
Nutrition: assess d/t LOS. Pt admitted following fall at home. Hx of DM, HTN, HLD, and Parkinson's. Pt out of room for kyphoplasty procedure. Possible admit to [facility] once medically stable. Weights from past admissions show pt only down 4 lbs in ~2 years. Consider low risk at this time.
[2018-11-05 10:30] VITALS: BP 151/69
[2018-11-05 11:00] VITALS: BP 152/76
[2018-11-05 11:30] VITALS: BP 157/64
[2018-11-05 14:30] VITALS: BP 142/67
--- NOTE | 2018-11-05 14:46 | NUR ---
PT HAD KYPHOPLAST TODAY. PT WAS SEEN BY THERAPY AND THEY INDICATED THAT PT WOULD BENEFIT FROM POST ACUTE CARE STAY. PT AND FAMILY RECEPTIVE TO GOING TO [facility] ACUTE INPATIENT REHAB UNTIL. PT IS TO DISCHARGE THERE LATER THIS EVENING. REPORT TO BE CALLED TO . NO OTHER CM INTERVENTION INDICATED AT THIS TIME. CASE CLOSED.
[2018-11-05] MEDS ORDERED: ENOXAPARIN30 MG/0.1 SUBQ ×2 (14:54→15:22)
--- NOTE | 2018-11-05 19:18 | NUR ---
PT DISCHARGED TO INPATIENT REHAB. PT A&OX4, VSS, PAIN IN UPPER BACK AT AN 8 AND MANAGED WITH MEDICATION. PT ABLE TO AMBULATE WITH ONE ASSIST TO BATHROOM AND RECLINER. ALL BELONGINGS SENT WITH PATIENT. IV PATENT IN LEFT FOREARM. PATIENT IS POST KYPHOPLASTY TODAY. REGULAR DIET ON ORDER AND TOLERATING WELL.
== END 2018-11-05 19:15 | DRG 517 ==
LOC: ER 10:17 → EROBS 13:53 → 4W 13:53
PROVIDERS: Emergency Medicine; ADMIT Hospitalist
PROC: 0PS43ZZ Reposition Thoracic Vertebra, Percutaneous Approach (ICD-10-PCS; principal; 2018-11-05)
PROC: 0PU43JZ Supplement Thoracic Vertebra with Synthetic Substitute, Percutaneous Approach (ICD-10-PCS; principal; 2018-11-05)
DX: S22.069A Unspecified fracture of T7-T8 vertebra, initial encounter for closed fracture (principal); S22.059A Unspecified fracture of T5-T6 vertebra, initial encounter for closed fracture; E11.9 Type 2 diabetes mellitus without complications; G20 Parkinson's disease; I10 Essential (primary) hypertension; S60.222A Contusion of left hand, initial encounter; S90.31XA Contusion of right foot, initial encounter; W18.39XA Other fall on same level, initial encounter; D72.829 Elevated white blood cell count, unspecified; F41.9 Anxiety disorder, unspecified; K59.00 Constipation, unspecified; E78.5 Hyperlipidemia, unspecified; Z85.3 Personal history of malignant neoplasm of breast; Z85.51 Personal history of malignant neoplasm of bladder; Z88.2 Allergy status to sulfonamides; Z83.3 Family history of diabetes mellitus; Z79.899 Other long term (current) drug therapy; Z47.89 Encounter for other orthopedic aftercare; Y93.89 Activity, other specified; Y92.098 Other place in other non-institutional residence as the place of occurrence of the external cause; Y99.8 Other external cause status
CPT/HCPCS: 10040

== ENCOUNTER 2018-11-05 14:10 | Inpatient (IN) | payer OTHER, BC ==
[~2018-11-05] VITALS: Ht 152.4 cm; Wt 83.6 kg
[2018-11-05] MEDS ORDERED: ENOXAPARIN30 MG/0.1 SUBQ ×2 (14:54→15:22)
[2018-11-05 19:45] VITALS: BP 151/68
[2018-11-06 05:46] LABS: HEMATOCRIT 30.3 % (37.0-47.0); HEMOGLOBIN 10.2 gm/dL (12.0-15.0); MCH 28.1 pg (26.0-34.0); MCHC 33.8 g/dL (28.0-37.0); MCV 83.4 fL (80.0-100.0); RBC 3.63 mil/uL (4.20-5.00); RDW 14.3 % (10.5-14.5); WBC 6.5 thou/uL (4.0-11.0)
[2018-11-06 06:03] LABS: CALCIUM 8.8 mg/dL (8.5-10.1); POTASSIUM 3.7 mmol/L (3.5-5.1)
[2018-11-06 08:04] VITALS: BP 160/70
[2018-11-06 11:11] VITALS: BP 160/70
[2018-11-06 20:31] VITALS: BP 141/68
[2018-11-07 09:04] VITALS: BP 148/77
[2018-11-07 19:45] VITALS: BP 147/76
[2018-11-08 07:30] VITALS: BP 128/64
[2018-11-08 11:13] LABS: HEMATOCRIT 31.6 % (37.0-47.0); HEMOGLOBIN 10.5 gm/dL (12.0-15.0); MCH 27.9 pg (26.0-34.0); MCHC 33.2 g/dL (28.0-37.0); MCV 84.1 fL (80.0-100.0); RBC 3.76 mil/uL (4.20-5.00); RDW 14.6 % (10.5-14.5); WBC 6.4 thou/uL (4.0-11.0)
[2018-11-08 11:28] LABS: ALBUMIN 3.4 g/dL (3.4-5.0); CALCIUM 9.2 mg/dL (8.5-10.1); CREATININE 1.1 mg/dL (0.6-1.0); MAGNESIUM 1.9 mg/dL (1.8-2.4); POTASSIUM 3.7 mmol/L (3.5-5.1); TOTAL BILIRUBIN 0.4 mg/dL (<0.1-1.0); TOTAL PROTEIN 7.2 g/dL (6.4-8.2)
[2018-11-08 20:00] VITALS: BP 132/83
[2018-11-08 21:05] VITALS: BP 139/62
[2018-11-09 05:15] LABS: HEMATOCRIT 30.2 % (37.0-47.0); HEMOGLOBIN 10.1 gm/dL (12.0-15.0); MCH 28.1 pg (26.0-34.0); MCHC 33.4 g/dL (28.0-37.0); MCV 84.1 fL (80.0-100.0); RBC 3.59 mil/uL (4.20-5.00); RDW 14.9 % (10.5-14.5); WBC 5.9 thou/uL (4.0-11.0)
[2018-11-09 05:20] LABS: CALCIUM 8.7 mg/dL (8.5-10.1); MAGNESIUM 1.9 mg/dL (1.8-2.4); POTASSIUM 3.5 mmol/L (3.5-5.1)
[2018-11-09 07:30] VITALS: BP 146/67
[2018-11-09 19:28] VITALS: BP 155/67
[2018-11-10 07:30] VITALS: BP 135/66
[2018-11-10 19:21] VITALS: BP 141/71
[2018-11-11 08:00] VITALS: BP 150/71
[2018-11-11 19:32] VITALS: BP 146/63
[2018-11-12 08:35] VITALS: BP 159/71
[2018-11-12 19:03] VITALS: BP 146/70
[2018-11-13 09:06] VITALS: BP 148/87
[2018-11-13] MEDS ORDERED: VOLTAREN100 GM TOP (12:12)
[2018-11-13] MEDS ORDERED: ERGOCALCIF50000 UNIT PO (12:12)
[2018-11-13] MEDS ORDERED: NEURONTIN 300M300 M2 PO (12:12)
[2018-11-13] MEDS ORDERED: TYLENOL EXTRA500 MG PO (12:12)
--- NOTE | 2018-11-13 12:22 | PLAN ---
[facility] [place] [address] REHAB UNIT PLAN OF CARE Name: PETROS MCCAULEY Room #: 511-P ADM IN M.R.#: [id number] Admission: 11/05/18 ������������������ Attend Phys: Rene Miller MD Discharge: ������������������ Date of : 30 Report #: [id number] THIS REPORT FOR: //name// CC: Rene Hinton DATE OF SERVICE: 11/07/2018 PROGRESS NOTE/OVERALL PLAN OF CARE SUBJECTIVE: The patient is seen back today in followup. She thinks that the kyphoplasty did help her back symptoms some. Her temperature is 98.2, pulse 85, respirations 18, blood pressure 141/68. She does not have any calf swelling. She is working in therapies with transfers, min assist. Gait min assist 100 feet 4-wheeled walker. In occupational therapy, lower body dressing is moderate assistance, upper body dressing is min assist. ASSESSMENT: 1. Parkinson's disease. 2. Compression fractures T5, status post kyphoplasty. 3. Gait instability with falls. 4. Recent fall with inability to ambulate. 5. Diabetes mellitus. 6. Hypertension. 7. History of breast cancer. 8. Bladder cancer with surgery. PLAN: The overall plan of care is based on the preadmission screen, post-admission physician evaluation and information garnered from therapy assessments. 1. Estimated length of stay is probably at least 7-10 days. 2. Medical prognosis is reasonably good. 3. Anticipated interventions includes the interdisciplinary acute inpatient rehabilitation program with the goal of maximizing the patient's functional independence, so that she can hopefully return back to her prior living situation. 4. Anticipated functional outcomes would be for the patient to ideally be modified independent at a walker level with mobility and ADLs. 5. Discharge destination would be back to her house where she lives alone. She does have involved family. 6. Expected therapy by discipline includes PT, OT 1-1/2 hours per day, 5 days a week throughout the duration of the acute inpatient [place] [address] REHAB UNIT PLAN OF CARE Name: MCCAULEYPETROS Room #: 511-P [facility] IN [facility].#: [id number] Admission: 11/05/18 ������������������ Attend Phys: Rene Miller MD Discharge: ������������������ Date of : 30 Report #: [id number] monitoring her regarding her tremor and rigidity with the Parkinson's disease and trying to maximize her functional independence. ��������������������������������������������� <ELECTRONICALLY SIGNED> ���������������������������������������� By: Rene Miller MD ��������������������������������������������� 11/13/18 1222 0845 0123 Rene Miller MD /[facility]
--- NOTE | 2018-11-13 12:22 | H ---
[facility] [place] [address] [address] HISTORY AND PHYSICAL Name: LEILA MCCAULEYINE Room #: 511-P [facility] IN ..#: [id number] Admission: 11/05/18 ������������������ Attend Phys: Rene Miller MD Discharge: ������������������ Date of : 30 Report #: [id number] THIS REPORT FOR: //name// CC: Rene Hinton DATE OF SERVICE: 11/05/2018 HISTORY AND PHYSICAL AND POST-ADMISSION PHYSICIAN EVALUATION HISTORY OF PRESENT ILLNESS: The patient is an 88-year-old white female with history of Parkinson's disease, diabetes mellitus and hypertension. She is a premorbid walker ambulator with her Parkinson's. She did have a fall at home, landed on her back. She complained of significant mid lower back pain. She underwent imaging revealing subacute T5 compression fracture, chronic T7 and L4 compression fractures. She did end up undergoing T5 kyphoplasty on 11/05/2018. She notes her back pain is somewhat better post the kyphoplasty. She has significant functional mobility and ADL deficits and has had a decline from her premorbid functional status. She has now been admitted for acute in-hospital inpatient rehabilitation. PAST MEDICAL HISTORY: Includes Parkinson's disease diagnosed on 07/27/2018, history of hypertension, hyperlipidemia, diabetes mellitus type 2, breast cancer with right lumpectomy, bladder cancer with surgery, prior right arm fracture in 2013. MEDICATIONS: Please see the full medication listing. ALLERGIES: SULFA. SOCIAL HISTORY: Lives in a house alone, 2 steps in. Used a walker. She does have involved family. She notes that she would be by herself and would need to be independent prior to returning home. HABITS: No history of tobacco or alcohol abuse. REVIEW OF SYSTEMS: Did not offer any current complaints of chest pain, shortness of breath, abdominal discomfort. She has the functional issues with her Parkinson's. PHYSICAL EXAMINATION: GENERAL: The patient was seen earlier, 88-year-old white female, in no obvious distress. VITAL SIGNS: Last recorded temperature 98.1, pulse 83, respirations 14 and blood pressure 160/70. HEENT: She does have some evidence of masked facies. Appears appropriate. She [facility] [address] [place] [address] HISTORY AND PHYSICAL Name: PETROS MCCAULEY Room #: 511-P [facility] IN M.R.#: [id number] Admission: 11/05/18 ������������������ Attend Phys: Rene Miller MD Discharge: ������������������ Date of : 30 Report #: [id number] was somewhat groggy, but would easily arouse. CHEST: Sounded clear to auscultation. CARDIOVASCULAR: Regular rate and rhythm. ABDOMEN: Bowel sounds positive, nontender. GENITOURINARY AND RECTAL: Deferred. NEUROLOGIC: There is some evidence of cogwheeling, both upper extremities. Functional range of motion, strength is a grade 4- to 3+/5. Lower extremities functional range of motion, strength is grade 3+ to 4-/5. Tone is intact. There is some rigidity noted. She needed assistance with basic functional mobility issues with mod assist required for sit to stand. ASSESSMENT: An 88-year-old white female with the following problem list: 1. Parkinson's disease. 2. Compression fractures T5, status post kyphoplasty. 3. Gait instability with falls. 4. Recent fall with inability to ambulate and now starting to do better. 5. Diabetes mellitus. 6. Hypertension. 7. History of breast cancer. 8. Bladder cancer with surgery. PLAN: The patient is admitted for acute in-hospital inpatient rehabilitation. From a postadmission physician evaluation perspective, there are no relevant changes since the preadmission screening. Please see the noted review above of prior medical and functional conditions and comorbidities. Please see the previous and current functional status. As far as the risk of complications, the patient has multiple medical comorbidities as noted above. Initial plan of care involves the interdisciplinary acute inpatient rehabilitation program with goal of maximizing the patient's functional independence, so that she can hopefully return back to her prior living situation. Measurable functional goals would be for the patient to become modified independent with transfers, mobility, ADLs, so that she can return back to the home setting. Prognosis is reasonably good with estimated length of stay probably at least 7-10 days, potentially longer if warranted. Potential barriers would include her multiple medical comorbidities and decreased functional status. The patient meets diagnostic criteria for an acute in-hospital inpatient rehabilitation stay. She meets the medical necessity criteria and we will have the test consultant physicians continue to follow. She does have the tolerance for therapies and has appropriate discharge goals back to the home setting. ��������������������������������������������� <ELECTRONICALLY SIGNED> ���������������������������������������� By: Rene Miller MD ��������������������������������������������� 11/13/18 1222 1042 1104 Rene Miller MD /[facility]
[2018-11-13 19:20] VITALS: BP 129/57
[2018-11-14 08:00] VITALS: BP 146/77
[2018-11-14 19:54] VITALS: BP 141/61
[2018-11-15 09:28] VITALS: BP 145/74
[2018-11-15 19:00] VITALS: BP 148/56
[2018-11-16 04:14] LABS: HEMATOCRIT 30.7 % (37.0-47.0); HEMOGLOBIN 10.1 gm/dL (12.0-15.0); MCH 27.7 pg (26.0-34.0); MCHC 32.9 g/dL (28.0-37.0); MCV 84.3 fL (80.0-100.0); RBC 3.65 mil/uL (4.20-5.00); RDW 15.1 % (10.5-14.5); WBC 6.7 thou/uL (4.0-11.0)
[2018-11-16 04:22] LABS: CALCIUM 8.6 mg/dL (8.5-10.1); POTASSIUM 3.8 mmol/L (3.5-5.1)
[2018-11-16 08:00] VITALS: BP 133/66
[2018-11-16 20:53] VITALS: BP 164/73
[2018-11-17 08:00] VITALS: BP 143/66
[2018-11-17 19:42] VITALS: BP 151/63
--- NOTE | 2018-11-17 22:35 | HC ---
[facility] [place] [address] CONSULTATION Name: PETROS MCCAULEY Room #: 511-P [facility] IN M.R.#: [id number] Admission: 11/05/18 ������������������ Attend Phys: Rene Miller MD Discharge: ������������������ Date of : 30 Report #: [id number] THIS REPORT FOR: //name// CC: Rene Hinton DATE OF SERVICE: 11/15/2018 NEUROBEHAVIORAL STATUS EXAMINATION ATTENDING PHYSICIAN: Rene Miller M.D. STARS ANALYTICAL LEAD: Stanislav Dennis, PhD. CLINICAL PRESENTATION: The patient is an 88-year-old white female admitted to the [facility] Rehabilitation Unit for comprehensive inpatient rehabilitation program to improve functional mobility, activities of daily living and self-care and mental status secondary to deficits from Parkinson disease and compression fractures. She is reported to have been living at home when she sustained a fall, landing on her back. She ended up undergoing kyphoplasty on 11/05/2018. Significant functional mobility and activities of daily living deficits were noted in comparison to premorbid status. Her assessment on admission to the Rehabilitation Unit is Parkinson disease; compression fractures T5, status post kyphoplasty; gait instability with falls; recent fall with inability to ambulate; diabetes mellitus; hypertension and history of breast cancer and bladder cancer with surgery. A complete description of her medical condition and history along with medications can be found in her medical records. Neuropsychological consultation was requested to provide assistance in the assessment of cognitive and emotional status and to provide recommendations and services. Prior to this most recent hospitalization, she was living alone in her home. Her ten years ago. The patient reported that she quit driving in 2018. She was independent with instrumental activities of daily living, except for driving. She has had 5 children. Four children live within the [place] area. She is a high school graduate. 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 TECHNIQUES UTILIZED: Clinical interview, review of medical records, staff consultation and behavioral observation, mini mental status exam 2 standard version and verbal fluency assessment (letter and category) and also clock drawing. EXAMINATION FINDINGS: The patient was alert and cooperative with the assessment. She accurately described the reason for her admission. There was [facility] [address] [address] CONSULTATION Name: PETROS MCCAULEY Room #: 511-P [facility] IN M.R.#: [id number] Admission: 11/05/18 ������������������ Attend Phys: Rene Miller MD Discharge: ������������������ Date of : 30 Report #: [id number] no evidence of aphasia. Her thoughts were logical and goal oriented. There was no evidence of thought disorder. She reports voluntarily discontinuing driving in 2018. As indicated, her primary symptoms are difficulty with word finding decreased endurance, and anxiety. She does not report subjective depression, sleep disturbance, decreased appetite or problems with memory. Her performance on the MMSE 2 brief version is within normal limits, with a raw score of 15 of 16. She was 3/3 for initial registration, 5/5 for orientation to time, 5/[address] and 2/3 for immediate recall of 3 items after a brief time delay and distraction. Performance on the MMSE 2 standard version was within normal limits, with a raw score of 28 of 30. She was 5/5 for serial sevens, 2/2 for naming and 1/1 for repetition. Auditory comprehension and being able to read and follow single command was within normal limits. The patient was able to write a sentence, but was unable to copy a simple geometric design. Letter fluency is in the average range with a raw score of 17, T score of 44, percentile rank of 27. Category fluency was a raw score of 26, T score of 41 and percentile rank of 18. Total fluency was a raw score of 43, T score of 44 and percentile rank of 27. The patient is presenting with [id number] deficits in verbal fluency. Greater deficits are noted in category fluency. Difficulty with copying is noted suggesting visual-spatial deficits. In general, the patient is alert and oriented. 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 Adjustment disorder with anxious mood. RECOMMENDATIONS: The patient will likely require increased assistance with planning and problem solving upon her return home. Educational information regarding variability in cognitive functioning that is likely due to concussion and Parkinsons disease for the patient and family. Increased assistance is likely to be necessary to maintain optimal safety. [address] [address] CONSULTATION Name: LEILA MCCAULEYINE Room #: 511-P ADM IN M.R.#: [id number] Admission: 11/05/18 ������������������ Attend Phys: Rene Miller MD Discharge: ������������������ Date of : 30 Report #: [id number] Thank you very much for allowing me to provide the consultation on this patient. ��������������������������������������������� <ELECTRONICALLY SIGNED> ���������������������������������������� By: Stanislav Dennis, PhD ��������������������������������������������� 11/17/18 2235 1739 0200 Stanislav Dennis, PhD /nt
[2018-11-18 07:18] VITALS: BP 157/80
[2018-11-18 10:01] LABS: ABSOLUTE NEUTROPHILS 5.5 thou/uL (1.4-8.2); BASOPHILS 0.7 % (0.0-2.0); EOSINOPHILS 4.6 % (0.0-3.0); HEMOGLOBIN 10.6 gm/dL (12.0-15.0); MCH 27.8 pg (26.0-34.0); MCHC 33.1 g/dL (28.0-37.0); PLATELET COUNT 222 thou/uL (150-400); POLYS 76.7 % (36.0-66.0); RBC 3.81 mil/uL (4.20-5.00); WBC 7.2 thou/uL (4.0-11.0)
[2018-11-18 10:14] LABS: ALBUMIN 3.5 g/dL (3.4-5.0); CREATININE 1.1 mg/dL (0.6-1.0); MAGNESIUM 1.6 mg/dL (1.8-2.4); TOTAL BILIRUBIN 0.3 mg/dL (<0.1-1.0); TOTAL PROTEIN 7.1 g/dL (6.4-8.2)
[2018-11-18 12:43] VITALS: BP 168/89
[2018-11-18 19:35] VITALS: BP 129/69
[2018-11-18 19:38] VITALS: BP 138/75
[2018-11-19 07:30] VITALS: BP 132/68
[2018-11-19 10:49] VITALS: BP 132/68
[2018-11-19] MEDS ORDERED: METFORMIN HCL500 MG PO (10:51)
[2018-11-19 12:15] VITALS: BP 132/68
[2018-11-19 12:32] VITALS: BP 132/68
== END 2018-11-19 13:55 | disposition home health service (06) | DRG 57 ==
LOC: ENTRNSPT 11-19 13:40 → EDTRNSPTSTS 11-19 13:41
PROVIDERS: Hospitalist; Internal Medicine; Nurse Practitioner; ADMIT Physical Medicine & Rehabilitation
DX: G20 Parkinson's disease (principal); M48.54XA Collapsed vertebra, not elsewhere classified, thoracic region, initial encounter for fracture; E11.9 Type 2 diabetes mellitus without complications; I10 Essential (primary) hypertension; R29.6 Repeated falls; R26.9 Unspecified abnormalities of gait and mobility; E78.5 Hyperlipidemia, unspecified; F41.9 Anxiety disorder, unspecified; K59.00 Constipation, unspecified; E55.9 Vitamin D deficiency, unspecified; R09.02 Hypoxemia; Z88.2 Allergy status to sulfonamides; Z91.81 History of falling; Z85.51 Personal history of malignant neoplasm of bladder; Z85.3 Personal history of malignant neoplasm of breast; Z79.84 Long term (current) use of oral hypoglycemic drugs; Z79.899 Other long term (current) drug therapy
CPT/HCPCS: 10112

== ENCOUNTER 2018-12-22 09:36 | Emergency (ER) | payer OTHER, BC ==
[~2018-12-22] VITALS: Ht 157.5 cm; Wt 63.5 kg
[~2018-12-22 09:36] MED LIST changes: +ENOXAPARIN30 MG/0.1 SUBQ; +ERGOCALCIF50000 UNIT PO; +NEURONTIN 300M300 M2 PO; +TYLENOL EXTRA500 MG PO; +VOLTAREN100 GM TOP
[2018-12-22 10:03] LABS: ABSOLUTE NEUTROPHILS 8.6 thou/uL (1.4-8.2); BASOPHILS 0.5 % (0.0-2.0); EOSINOPHILS 7.5 % (0.0-3.0); HEMATOCRIT 33.1 % (37.0-47.0); HEMOGLOBIN 10.7 gm/dL (12.0-15.0); LYMPHOCYTES 6.1 % (24.0-44.0); MCH 26.1 pg (26.0-34.0); MCHC 32.3 g/dL (28.0-37.0); MCV 80.8 fL (80.0-100.0); MONOCYTES 7.9 % (1.0-8.0); PLATELET COUNT 272 thou/uL (150-400); RBC 4.09 mil/uL (4.20-5.00); RDW 16.2 % (10.5-14.5)
[2018-12-22 10:17] LABS: APTT 26.5 Seconds (24.5-32.8); PROTIME 10.5 Seconds (9.3-11.4)
[2018-12-22 10:21] LABS: ANION GAP 14 mmol/L (7-16); BUN 16 mg/dL (7-18); CALCIUM 9.4 mg/dL (8.5-10.1); CHLORIDE 102 mmol/L (98-107); CO2 24 mmol/L (21-32); CREATININE 1.1 mg/dL (0.6-1.0); GLUCOSE 191 mg/dL (74-106); POTASSIUM 3.8 mmol/L (3.5-5.1); SODIUM 140 mmol/L (136-145)
[2018-12-22 10:32] LABS: ALBUMIN 3.6 g/dL (3.4-5.0); LIPASE 259 U/L (73-393); MAGNESIUM 1.7 mg/dL (1.8-2.4); SGOT 14 U/L (15-37); SGPT 9 U/L (30-65); TOTAL BILIRUBIN 0.4 mg/dL (<0.1-1.0); TOTAL PROTEIN 7.4 g/dL (6.4-8.2); TROPONIN-I <0.06 ng/mL (<0.06)
[2018-12-22 11:19] LABS: URINE BILIRUBIN NEGATIVE (Negative); URINE BLOOD NEGATIVE (Negative); URINE CLARITY CLEAR; URINE COLOR YELLOW; URINE GLUCOSE-RANDOM* NEGATIVE (Negative); URINE KETONES NEGATIVE (Negative); URINE PROTEIN (DIPSTICK) NEGATIVE (Negative); URINE SPECIFIC GRAVITY <= 1.005 (1.005-1.035); URINE UROBILINOGEN 0.2 E.U./dl (0.2-1.0)
[2018-12-22 11:20] LABS: URINE LEUKOCYTES-REFLEX 1+ (Negative); URINE NITRITE-REFLEX POSITIVE (Negative)
[2018-12-22 11:32] LABS: CASTS None Seen /LPF (None Seen); SQUAMOUS 0-3 Few /LPF (0-3)
[2018-12-22 11:33] LABS: BACTERIA-REFLEX >30 Many /HPF (None Seen); CRYSTALS None Seen /LPF (None Seen); URINE RBC 0-2 Rare /HPF (0-2); URINE WBC-REFLEX 6-15 Few /HPF (0-5)
--- NOTE | 2018-12-22 12:16 | EKG ---
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: matthew : 1930 Requested By: Gutierrez Banda Order Number: [id number] MD: Rangel Gambino Measurements Intervals [place] Rate: 91 P: 6 GA: 156 QRS: -8 QRSD: 100 T: -3 QT: 373 QTc: 459 Interpretive Statements Sinus rhythm Left ventricular hypertrophy Compared to ECG 10/30/2018 14:59:18 No significant changes Electronically Signed On 12-22-2018 12:15:58 CDT by Rangel Gambino [email or web address] ��������������������������������������������� <ELECTRONICALLY SIGNED> ���������������������������������������� By: Rangel Gambino MD ��������������������������������������������� 12/22/18 1215 0950 0950 MD JASON Cardenas
[2018-12-22] MEDS ORDERED: KEFLEX500 M1 PO (12:48)
[2018-12-22] MEDS ORDERED: NORFLEX100 MG PO (12:48)
[2018-12-22] MEDS ORDERED: ACETAMINOPHEN-1 EAC1 PO (12:48)
[2018-12-22] MEDS ORDERED: ONDANSETRON ODT8 MG PO (13:00)
[2018-12-22 13:08] VITALS: BP 144/66
== END 2018-12-22 13:10 | disposition home or self-care (01) ==
LOC: ER 09:36
PROVIDERS: Emergency Medicine
DX: N39.0 Urinary tract infection, site not specified (principal); I10 Essential (primary) hypertension; F41.9 Anxiety disorder, unspecified; D64.9 Anemia, unspecified; M62.830 Muscle spasm of back; R06.02 Shortness of breath; M54.6 Pain in thoracic spine; E11.9 Type 2 diabetes mellitus without complications; E78.5 Hyperlipidemia, unspecified; G20 Parkinson's disease; Z85.3 Personal history of malignant neoplasm of breast; Z90.11 Acquired absence of right breast and nipple; Z88.2 Allergy status to sulfonamides

== ENCOUNTER 2019-08-01 10:17 | Emergency (ER) | payer OTHER, BC ==
[~2019-08-01] VITALS: Ht 157.5 cm; Wt 61.2 kg
[~2019-08-01 10:17] MED LIST changes: +ACETAMINOPHEN-1 EAC1 PO; +KEFLEX500 M1 PO; +NORFLEX100 MG PO; +ONDANSETRON ODT8 MG PO
[2019-08-01 11:04] LABS: ABSOLUTE NEUTROPHILS 7.3 thou/uL (1.4-8.2); BASOPHILS 0.4 % (0.0-2.0); EOSINOPHILS 1.2 % (0.0-3.0); HEMATOCRIT 39.2 % (37.0-47.0); HEMOGLOBIN 12.6 gm/dL (12.0-15.0); LYMPHOCYTES 7.2 % (24.0-44.0); MCH 27.3 pg (26.0-34.0); MCHC 32.2 g/dL (28.0-37.0); MCV 84.7 fL (80.0-100.0); MONOCYTES 10.4 % (1.0-8.0); PLATELET COUNT 218 thou/uL (150-400); POLYS 80.8 % (36.0-66.0); RBC 4.63 mil/uL (4.20-5.00); RDW 15.2 % (10.5-14.5)
[2019-08-01] MEDS ORDERED: KLOR-CON M2020 MEQ PO (11:06)
[2019-08-01] MEDS ORDERED: CO Q-10100 MG PO (11:06)
[2019-08-01 11:09] LABS: CALCIUM 9.4 mg/dL (8.5-10.1); CREATININE 1.2 mg/dL (0.6-1.0); POTASSIUM 3.9 mmol/L (3.5-5.1)
[2019-08-01 11:16] LABS: ALBUMIN 3.8 g/dL (3.4-5.0); TOTAL BILIRUBIN 0.4 mg/dL (<0.1-1.0); TOTAL PROTEIN 7.6 g/dL (6.4-8.2)
[2019-08-01 12:55] LABS: URINE BILIRUBIN NEGATIVE (Negative); URINE BLOOD NEGATIVE (Negative); URINE CLARITY CLEAR; URINE COLOR YELLOW; URINE GLUCOSE-RANDOM* NEGATIVE (Negative); URINE KETONES NEGATIVE (Negative); URINE LEUKOCYTES-REFLEX NEGATIVE (Negative); URINE NITRITE-REFLEX NEGATIVE (Negative); URINE PROTEIN (DIPSTICK) TRACE (Negative); URINE UROBILINOGEN 0.2 E.U./dl (0.2-1.0)
[2019-08-01 14:17] VITALS: BP 144/88
--- NOTE | 2019-08-03 08:32 | EKG ---
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: [facility] : 1930 Requested By: Maryanne Meyer Order Number: [id number] MD: Eder Queen Measurements Intervals [place] Rate: 92 P: 8 WI: 156 QRS: -15 QRSD: 96 T: -5 QT: 381 QTc: 472 Interpretive Statements Sinus rhythm Abnormal R-wave progression, late transition Left ventricular hypertrophy Compared to ECG 12/22/2018 09:50:21 No significant change was found Electronically Signed On 08-03-2019 8:31:24 CAN HANDLER by Eder Queen [email or web address] <ELECTRONICALLY SIGNED> By: Eder Queen MD, [facility] 08/03/19 0831 1239 1239 Eder Queen MD, [facility] /EPI
== END 2019-08-01 14:18 | disposition home or self-care (01) ==
LOC: ER 10:17
PROVIDERS: Emergency Medicine
DX: R10.30 Lower abdominal pain, unspecified (principal); I10 Essential (primary) hypertension; E78.5 Hyperlipidemia, unspecified; E11.9 Type 2 diabetes mellitus without complications; Z85.3 Personal history of malignant neoplasm of breast; Z88.2 Allergy status to sulfonamides

== ENCOUNTER 2019-08-27 12:38 | Emergency (ER) | payer OTHER, BC ==
[~2019-08-27] VITALS: Ht 157.5 cm; Wt 61.2 kg
[~2019-08-27 12:38] MED LIST changes: +CO Q-10100 MG PO; +KLOR-CON M2020 MEQ PO
[2019-08-27 13:18] LABS: HEMATOCRIT 38.6 % (37.0-47.0); HEMOGLOBIN 12.5 gm/dL (12.0-15.0); MCH 27.7 pg (26.0-34.0); MCHC 32.3 g/dL (28.0-37.0); MCV 85.7 fL (80.0-100.0); PLATELET COUNT 204 thou/uL (150-400); RDW 15.3 % (10.5-14.5); WBC 10.1 thou/uL (4.0-11.0)
[2019-08-27 13:27] LABS: CALCIUM 9.6 mg/dL (8.5-10.1); CREATININE 1.2 mg/dL (0.6-1.0); POTASSIUM 3.8 mmol/L (3.5-5.1)
[2019-08-27 13:28] LABS: ALBUMIN 3.6 g/dL (3.4-5.0)
[2019-08-27 13:40] LABS: TOTAL BILIRUBIN 0.3 mg/dL (<0.1-1.0); TOTAL PROTEIN 7.4 g/dL (6.4-8.2)
[2019-08-27 13:48] LABS: ABSOLUTE NEUTROPHILS 8.1 thou/uL (1.4-8.2); PLATELET ESTIMATE NORMAL
[2019-08-27] MEDS ORDERED: MIRALAX119 GM PO (15:18)
[2019-08-27] MEDS ORDERED: NORCO 5-325 TA1 EAC1 PO (15:18)
[2019-08-27 15:21] VITALS: BP 161/84
== END 2019-08-27 15:40 | disposition home or self-care (01) ==
LOC: ER 12:38
PROVIDERS: Emergency Medicine
DX: M54.5 Low back pain (principal); E11.9 Type 2 diabetes mellitus without complications; I10 Essential (primary) hypertension; E78.5 Hyperlipidemia, unspecified; F41.9 Anxiety disorder, unspecified; Z98.890 Other specified postprocedural states; Z85.3 Personal history of malignant neoplasm of breast; Z88.2 Allergy status to sulfonamides; Z79.899 Other long term (current) drug therapy

== ENCOUNTER 2019-10-24 10:45 | Inpatient (IN) | payer OTHER, BC ==
[~2019-10-24] VITALS: Ht 157.5 cm; Wt 58.7 kg
--- NOTE | ~2019-10-24 | EMS ---
[address] [address] EMS Patient Care Report Name: PETROS MCCAULEY Room #: REG IAN Romo#: [id number] Admission: 10/24/19 Attend Phys: Discharge: Date of : 30 Report #: [id number] THIS REPORT FOR: //name// Report Transmitted: 10/24/2019 12:06 EMS Care Summary [place], [place]/[facility] Incident [phone] @ 10/24/2019 10:16 Incident Location [address] [place] [address] Patient PETROS MCCAULEY Female, 89 Years 1930 Patient Address [address] [place] [address] Patient History Diabetes,Hypertension (HTN),Parkinson's Disease,Anxiety, Patient Allergies Sulfa, Patient Medications Carbidopa, Crestor, Amlodipine, Metformin, Lorazepam, Nortriptyline, Hydrocodone, Mirtazapine, Chief Complaint WEAKNESS Disposition Transported No Lights/[place]wards Dispatch Reason Sick Person Transported To [facility] Narrative UPON ARRIVAL PT SITTING UPRIGHT ON SIDE OF BED CONSCIOUS AND ALERT. FAMILY STATES PT HAS BEEN WEAK THIS MORNING AND IS UNABLE TO GET AROUND WITH WALKER SHE NORMALLY CAN. PT WAS UNABLE TO GET OFF OF THE TOILET ON HER OWN. PT ALSO [address] [address] EMS Patient Care Report Name: PETROS MCCAULEY Room #: REG IAN Romo#: [id number] Admission: 10/24/19 Attend Phys: Discharge: Date of : 30 Report #: [id number] C/O HAVING A VERY DRY MOUTH. PT OANH ANY NEW PAIN OR TROUBLE BREATHING. PT CARRIED OUTSIDE TO [facility] BY WALKER SEAT AND ASSISTED TO COT. PT TRANSPORTED TO [facility]. Initial Vitals @10:32P: 133,SpO2: 92, @10:37P: 94,BP: 153/93,CO: 2,SpO2: 94, @10:31P: 99,BP: 158/99,CO: 1,SpO2: 94, @10:22P: 99,R: 24,BP: 144/82,Pain: 0/10,GCS: 15,Glucose: 202,SpO2: 94,Revised Trauma: 12, Assessments @10:21MENTAL:Person Oriented,Time Oriented,Event Oriented,Place Oriented,SKIN:HEENT:Head/Face: No Abnormalities,LUNG SOUNDS:General: No Abnormalities,ABDOMEN:General: No Abnormalities,PELVIS//GI:EXTREMITIES:Left Arm: No Abnormalities,Right Arm: No Abnormalities,Left Leg: No Abnormalities,Right Leg: No Abnormalities,PULSE:Radial: 2+ Normal,NEURO:No Abnormalities, Impression Generalized Weakness Procedures @10:21ALS AssessmentResponse: UnchangedSucceeded@10:283-Lead ECGResponse: UnchangedSucceeded Timeline 10:14,Call Received 10:14,Dispatch Notified 10:16,Dispatched 10:16,En Route 10:18,On Scene 10:20,At Patient 10:21,ALS Assessment,Response: UnchangedSucceeded, 10:22,BP: 144/82 M,PULSE: 99,RR: 24 R,SPO2: 94 Ox,ETCO2: ,B,PAIN: 0,GCS: 15, 10:28,3-Lead ECG,Response: UnchangedSucceeded, 10:29,Depart Scene 10:31,BP: 158/99 M,PULSE: 99,RR: R,SPO2: 94 Ox,ETCO2: ,BG: ,PAIN: ,GCS: , 10:32,BP: / M,PULSE: 133,RR: R,SPO2: 92 Ox,ETCO2: ,BG: ,PAIN: ,GCS: , 10:37,BP: 153/93 M,PULSE: 94,RR: R,SPO2: 94 Ox,ETCO2: ,BG: ,PAIN: ,GCS: , 10:39,At Destination 10:57,Call Closed Disclaimer v1.1 Copyright 2020 [employer] [address] [address] EMS Patient Care Report Name: PETROS MCCAULEY Room #: REG [facility].#: [id number] Admission: 10/24/19 Attend Phys: Discharge: Date of : 30 Report #: [id number] This EMS Care Summary contains data elements from the applicable legal record (which may be displayed differently). It is designed to provide pertinent information for the following purposes: continuity of care, clinical quality, and state data reporting. The complete legal record is available to ED staff and administrators of the receiving hospital in [facility]'s Patient Tracker. All data is provided "as is."
--- NOTE | ~2019-10-24 | HC ---
[facility] [address] CONSULTATION Name: LEILA MCCAULEYINE Room #: 455-[facility] IN ..#: [id number] Admission: 10/24/19 Attend Phys: Juanpablo Dominguez MD Discharge: Date of : 30 Report #: [id number] THIS REPORT FOR: cc: [facility] - Family physician unknown [facility] - Family physician unknown Rene Miller MD ~ CC: Juanpablo Dominguez [facility] unknown DATE OF SERVICE: 10/28/2019 HISTORY OF PRESENT ILLNESS: The patient is an 89-year-old white female, admitted with increased weakness, increased problems falling, and fatigue with eating, lost 10 pounds. She has a history of Parkinson's disease, utilizes a front-wheeled walker at home. Upon admission, she was diagnosed with a thoracic spine compression fracture at T10 and underwent T10 kyphoplasty earlier today. She also has been diagnosed with urinary tract infection and is being treated with IV antibiotics. She has swallowing issues and speech therapy notes some prolonged mastication and weak swallow. She is on a mechanical soft, thin-liquid diet. We are seeing her in rehabilitation medicine consultation. PAST MEDICAL HISTORY: Includes Parkinson's disease, diabetes mellitus type 2, breast cancer with right lumpectomy, bladder cancer, right arm fracture in 2013. She had a prior T5 kyphoplasty in 10/2018. MEDICATIONS: Please see the full medication listing. ALLERGIES: SULFA. SOCIAL HISTORY: She lives in a ranch-style house, 2 steps to get in. She used a front-wheeled walker. She has had 5 falls since March. Son is looking into alternative arrangements and they are looking at assisted living facility, [facility]. The patient, however, would like to return back to her own home setting. She does not seem quite ready to go to an assisted living. REVIEW OF SYSTEMS: She did not offer any current complaints of chest pain, shortness of breath or abdominal discomfort. PHYSICAL EXAMINATION: GENERAL: An 89-year-old white female, in no obvious distress. VITAL SIGNS: Last recorded temperature 98.1, pulse 78, respirations 18, blood pressure 140/64. The patient is alert. HEENT: Appears to be benign. She is currently on nasal prong O2, 2 liters. NEUROMUSCULOSKELETAL: Facies are symmetric. Functional range of motion of both upper extremities. Strength is grade 4- to 3+/5. She does have some evidence [address] [address] CONSULTATION Name: PETROS MCCAULEY Room #: 455-[facility] IN ..#: [id number] Admission: 10/24/19 Attend Phys: Juanpablo Dominguez MD Discharge: Date of : 30 Report #: [id number] of masked facies. Upper extremities, there is some cogwheeling of elbows and wrists. In her lower extremities, there is no focal calf swelling, some mild bradykinesia. I would grade her strength at 3+ to 4-/5. She was seen by Physical Therapy before on 10/26/2019 and was mod assist sit to stand, gait was 2 feet mod assist front-wheeled walker. ASSESSMENT: An 89-year-old white female with the following problem list: 1. Parkinson's disease. 2. Acute T10 compression fracture, status post kyphoplasty earlier today. 3. Urinary tract infection, on IV antibiotics. 4. Dysphagia, on a mechanical soft diet with some prolonged mastication and weak swallow. 5. Gait instability with history of recent falls. 6. Recent weight loss associated with her swallowing difficulties. 7. Diabetes mellitus type 2. 8. Prior history of breast cancer. 9. Past history of bladder cancer. 10. Prior history of T5 kyphoplasty in 2019. PLAN: The patient is motivated to maximize her functional independence. She appears to have the tolerance and warrants involvement of all 3 disciplines. She is a candidate for an acute in-hospital inpatient rehabilitation stay. We can plan on transfer when medically cleared and a bed available. Thank you for asking us to assist in this patient's care. By: 1210 1722 Rene Miller MD /nt
[2019-10-24 10:45] VITALS: BP 144/89
[~2019-10-24 10:45] MED LIST changes: +MIRALAX119 GM PO; +NORCO 5-325 TA1 EAC1 PO
[2019-10-24] MEDS ORDERED: BENTYL 10 MG CA10 MG PO (11:31)
[2019-10-24] MEDS ORDERED: FLONASE 0.05%50 MCG NARES (11:32)
[2019-10-24] MEDS ORDERED: ASPERCREME1 EACH TOP (11:32)
[2019-10-24 12:24] LABS: ABSOLUTE NEUTROPHILS 6.4 thou/uL (1.4-8.2); BASOPHILS 0.5 % (0.0-2.0); EOSINOPHILS 1.1 % (0.0-3.0); HEMATOCRIT 42.8 % (37.0-47.0); HEMOGLOBIN 14.1 gm/dL (12.0-15.0); LYMPHOCYTES 9.3 % (24.0-44.0); MCH 28.2 pg (26.0-34.0); MCHC 32.8 g/dL (28.0-37.0); MCV 85.9 fL (80.0-100.0); MONOCYTES 8.6 % (1.0-8.0); PLATELET COUNT 232 thou/uL (150-400); POLYS 80.5 % (36.0-66.0); RBC 4.99 mil/uL (4.20-5.00); RDW 14.8 % (10.5-14.5)
[2019-10-24 12:36] LABS: ANION GAP 15 mmol/L (7-16); BUN 13 mg/dL (7-18); CALCIUM 9.6 mg/dL (8.5-10.1); CHLORIDE 101 mmol/L (98-107); CO2 25 mmol/L (21-32); CREATININE 1.4 mg/dL (0.6-1.0); GLUCOSE 139 mg/dL (74-106); POTASSIUM 3.6 mmol/L (3.5-5.1); SODIUM 141 mmol/L (136-145)
[2019-10-24 12:45] LABS: TROPONIN-I <0.06 ng/mL (<0.06)
[2019-10-24 12:49] LABS: URINE BILIRUBIN NEGATIVE (Negative); URINE BLOOD NEGATIVE (Negative); URINE CLARITY CLEAR; URINE COLOR YELLOW; URINE GLUCOSE-RANDOM* NEGATIVE (Negative); URINE KETONES NEGATIVE (Negative); URINE LEUKOCYTES-REFLEX 1+ (Negative); URINE NITRITE-REFLEX NEGATIVE (Negative); URINE PROTEIN (DIPSTICK) TRACE (Negative); URINE UROBILINOGEN 0.2 E.U./dl (0.2-1.0)
[2019-10-24 12:57] LABS: SQUAMOUS 0-3 Few /LPF (0-3)
[2019-10-24 12:58] LABS: BACTERIA-REFLEX 1-9 Few /HPF (None Seen); CASTS None Seen /LPF (None Seen); CRYSTALS None Seen /LPF (None Seen); URINE RBC 0-2 Rare /HPF (0-2); URINE WBC-REFLEX 0-5 Rare /HPF (0-5)
[2019-10-24 15:29] VITALS: BP 111/74
[2019-10-24 16:20] VITALS: BP 165/92
[2019-10-24 16:46] VITALS: BP 151/89
[2019-10-24 18:44] LABS: TSH 4.284 uIU/mL (0.358-3.740)
[2019-10-24 20:25] VITALS: BP 104/64
--- NOTE | 2019-10-24 20:43 | NUR ---
PT ADMITTED FROM THE ER AT 1630. A&Ox4. MED REC AND ADMISSION COMPLEETED. PT HAS CHRONIC BACK PAIN FROM A PREVIOUS COMPRESSION FRACTURE. ABDOMINAL PAIN CONTINUES. DIET CHANGED TO CARB CONTROL. PT IS WEAK AND GETS UP WITH A WALKER AT HOME. PARKINSON HISTORY. R. SIDE FORBIDDEN DUE TO LYMPH REMOVAL. FALL PROTOCOL IN PLACE. PT COMPLAINS OF PAIN WHEN URINATING. IV PATENT WITH NO REDNESS OR EDEMA, SALINE LOCKED. WILL CONTINUE TO MONITOR. PT DID NOT WANT SON UPDATED ON HER CARE SINCE SHE WAS JUST ADMITTED. PT SON IS SUPPOSED TO BRING HER READING GLASSES TOMORROW.
--- NOTE | 2019-10-25 02:20 | NUR ---
ASSUMED PT CARE AT APPROX 1900.PT REQUESTED TO GO T THE BR,PT GOT UP TO BSC COMMODE SAT FOR A COUPLE OF MINS,PT WAS OBSERVED BEING CLAMMY AND LEANING FORWARD.PT STATED THAT " I DON'T FEEL WELL". PT WAS PUT BACK IN BED.PT CONT TO COMPLAIN ABOUT PAIN IN HER ABD SHE POINTED TO HER ABD WHEN SHE WAS ASKED WHERE HER PAIN WAS, HER BLADDER WAS A LITTLE DISTENDED.BLADDER SACN SHOWED THAT SHE HAD GREATER THAN 600CC IN HER BLADDER.SOLUTION SPEC ON DUTY(ISHAAN LIU) NOTIFIED,ORDER NOTED TO STRAIGHT CATH X1 THEN DO ANOTHER BLADDER SACN IN 6HRS,IF PT IS STILL RETAINING, PUT A MEJIA IN.PT WAS STRAIGHT CATH AND 650CC WAS REMOVED.PAIN MED ADMINISTERED.PT WAS OBSERVED TO BE COUGHING WHENEVER SHE DRINKS, PT STATED THAT SHE STARTED HAVING TROUBLE SWALLOWING SINCE SATURDAY(10/23/19), PT WAS OFFERED THICKENED LIQUID AND SHE DID WELL WITH IT.PT CONT ON 2L/NC. SOB WITH EXERTION NOTED WHENEVER PT IS UP ON HER FEET AND WHILE SHE IS SPEAKING.PT RESTING ON HER BED AT THIS TIME.FALL PRECAUTIONS IN PLACE,CALL LIGHT WITHIN REACH.
[2019-10-25 04:40] VITALS: BP 143/73
[2019-10-25 07:21] VITALS: BP 128/78
[2019-10-25 07:37] LABS: HEMOGLOBIN 12.9 gm/dL (12.0-15.0); MCHC 33.1 g/dL (28.0-37.0); MCV 84.8 fL (80.0-100.0); RBC 4.6 mil/uL (4.20-5.00); RDW 14.8 % (10.5-14.5); WBC 7.5 thou/uL (4.0-11.0)
[2019-10-25 08:08] LABS: ALBUMIN 3.6 g/dL (3.4-5.0); CALCIUM 8.7 mg/dL (8.5-10.1); CREATININE 1.1 mg/dL (0.6-1.0); POTASSIUM 3.1 mmol/L (3.5-5.1); TOTAL BILIRUBIN 0.3 mg/dL (<0.1-1.0); TOTAL PROTEIN 6.9 g/dL (6.4-8.2)
[2019-10-25 12:38] LABS: URINE BILIRUBIN NEGATIVE (Negative); URINE BLOOD 1+ (Negative); URINE CLARITY CLEAR; URINE COLOR YELLOW; URINE GLUCOSE-RANDOM* NEGATIVE (Negative); URINE KETONES 1+ (Negative); URINE LEUKOCYTES-REFLEX NEGATIVE (Negative); URINE NITRITE-REFLEX NEGATIVE (Negative); URINE PROTEIN (DIPSTICK) TRACE (Negative); URINE SPECIFIC GRAVITY 1.015 (1.005-1.035); URINE UROBILINOGEN 0.2 E.U./dl (0.2-1.0)
[2019-10-25 13:01] LABS: BACTERIA-REFLEX 1-9 Few /HPF (None Seen); CASTS None Seen /LPF (None Seen); CRYSTALS None Seen /LPF (None Seen); SQUAMOUS 0-3 Few /LPF (0-3); URINE RBC 3-10 Few /HPF (0-2); URINE WBC-REFLEX 0-5 Rare /HPF (0-5)
[2019-10-25 19:30] VITALS: BP 126/79
--- NOTE | 2019-10-25 20:02 | NUR ---
PT CARE ASSUMED AT 0700. A&Ox4. PT CONTINUES TO COMPLAIN ABOUT ABDOMINAL PAIN WITH A /10. DR. MELO AWARE. PAIN MEDICATION ON BOARD NOW. PT WAS NOT ABLE TO URINATE AND AFTER BLADDER SCANNING WITH A 376ML RETENTION A MEJIA CATHETER WAS PLACED WITH A 650ML OUTPUT. PT CONTINUED TO COMPLAIN ABOUT ABDOMINAL PAIN ALL DAY AND AT RECEIVED PYRIDIUM WITH NO OUTPUT AT ALL AFTER THAT. SHE WAS BLADDER SCANNED WITH ONLY 4ML IN THE BLADDER. THERE WAS NO URINE PRODUCED IN THE LAST 4HOURS OF MY SHIFT BY THE PATIENT. DR. MELO IS AWARE OF THIS. P HAD A MRI TODAY AND WILL HAVE 2 MORE TOMORROW. FALL PROTOCOL IN PLACE. POTASSIUM RECEIVED AFTER A LOW 3.1 A REDRAW IS ORDERED FOR 2300. PT SON UPDATED ABOUT PT CARE. CALL LIGHT IN REACH. WILL CONTINUE TO MONITOR.
[2019-10-26 03:50] VITALS: BP 160/95
[2019-10-26 04:39] LABS: CALCIUM 8.6 mg/dL (8.5-10.1); POTASSIUM 4.4 mmol/L (3.5-5.1)
--- NOTE | 2019-10-26 05:41 | NUR ---
PT AOX4 WITH FORGETFULLNESS. PT NOTED TO BE WEAK. PT REPORTS SOB ON ROOM AIR WITH OXYGEN SATURATION OF 88%. PT NOTED TO BE PURSED LIP BREATHING WITH HOB ELEVATED. PROVIDED 2L OXYGEN VIA NC, PT CONTINUES TO REPORT SOB WITHOUT RELIEF. OXYGEN INCREASED TO 4L, PT REPORTS IMMEDIATE RELIEF WITH OXYGEN SATURATION OF 100%. PT REPORTS PAIN IN ABDOMEN AND BACK. PT RECEIVING PRN PO NORCO Q6HR AND PRN IV MORPHINE Q4HR. PT ALSO REPORTING NAUSEA WITH X2 EPISODES OF EMESIS. PT RECEIVING PRN IV ZOFRAN Q4HR. PT ABLE TO SHIFT INDEPENDENTLY IN BED, FREQUENT POSITIONING ENCOURAGED, PT REQUESTING SUPINE POSITION WITH PILLOWS FOR NECK SUPPORT. PT TOLERATING PO INTAKE OF NECTAR THICK FLUIDS WITH CARB CONTROLLED DIET. ENCOURAGED PT TO NOTIFY STAFF FOR ALL NEEDS. CALL LIGHT WITHIN REACH, BED ALARM ON, BED IN LOWEST POSITION. WILL CONTINUE TO MONITOR.
--- NOTE | 2019-10-26 07:53 | NUR ---
PT ASSISTED TO BEDSIDE COMMODE WITH X2 ASSIST. PT OBSERVED WITH SHUFFLING GAIT AND WEAKNESS. PT REPORTING SOB AFTER TRANSFER WHILE ON 4L, INCREASED OXYGEN TO 6L, PT REPORTS IMMEDIATE RELIEF. PT REQUESTS TO SIT ON COMMODE DUE TO REPORTS OF NEEDING TO HAVE BOWEL MOVEMENT. PT ASSESSED AT 0730 WITH VITALS OF 173/105, 88 HR, 21 RR, 98.5 TEMP, AND 100% O2 ON 6L. PT REPORTING SEVERE CHEST PAIN ACROSS CHEST WHILE ON BEDSIDE COMMODE, STAT EKG ORDERED, RAPID RESPONSE INITIATED. PT ASSISTED TO THE BED FROM BEDSIDE COMMODE WITH X3 ASSIST. PT REASSESSED AT 0800 WITH VITALS OF 153/90, 86 HR, 19 RR, AND 97% O2 ON 4L. PT REPORTING A DECREASE IN CHEST PAIN AT 5/10. PT CONTINUES WITH O2 SAT IN PLACE WITH HOB ELEVATED WITH 4L O2 VIA NC. ENCOURAGED PT TO NOTIFY STAFF FOR ALL NEEDS. CALL LIGHT WITHIN REACH, BED IN LOWEST POSITION, BED ALARM ON. WILL CONTINUE TO MONITOR.
--- NOTE | 2019-10-26 07:59 | EKG ---
[facility] [place] [address] ELECTROCARDIOGRAM REPORT Name: PETROS MCCAULEY Room #: 444- ADM IN M.R.#: [id number] Admission: 10/24/19 Attend Phys: Juanpablo Dominguez MD Discharge: Date of : 30 Report #: [id number] THIS REPORT FOR: cc: FAM - Family physician unknown FAM - Family physician unknown Eder Queen MD [facility] THIS REPORT FOR: //name// [facility] ED Test Date: 2019-10-24 Test Time: 11:17:28 Pat Name: PETROS MCCAULEY Department: Room: [facility] Gender: F Central Service Technician: Evette : 1930 Requested By: Skyler Weems Order Number: [id number] MD: Eder Queen Measurements Intervals [place] Rate: 94 P: -3 DE: 165 QRS: -25 QRSD: 108 T: -11 QT: 363 QTc: 454 Interpretive Statements Sinus rhythm Atrial premature complex Abnormal R-wave progression, late transition Borderline T abnormalities, inferior leads Compared to ECG 08/01/2019 12:39:06 Atrial premature complex(es) now present Electronically Signed On 10-26-2019 7:57:21 CDT by Eder Queen [email or web address] <ELECTRONICALLY SIGNED> By: Eder Queen MD, FAC 10/26/19 0757 1117 1117 Eder Queen MD, FAC /EPI
--- NOTE | 2019-10-26 08:16 | EKG ---
[facility] [place] [address] ELECTROCARDIOGRAM REPORT Name: PETROS MCCAULEY Room #: 444- ADM IN M.R.#: [id number] Admission: 10/24/19 Attend Phys: Juanpablo Dominguez MD Discharge: Date of : 30 Report #: [id number] THIS REPORT FOR: cc: FAM - Family physician unknown FAM - Family physician unknown Eder uQeen MD [facility] THIS REPORT FOR: //name// [facility] Test Date: 2019-10-26 Test Time: 07:48:14 Pat Name: PETROS MCCAULEY Department: Room: 444 Gender: F Technical Business Analyst: BROOKS : 1930 Requested By: Juanpablo Dominguez Order Number: [id number] MD: Eder Queen Measurements Intervals [place] Rate: 86 P: 5 GA: 154 QRS: -14 QRSD: 98 T: -12 QT: 373 QTc: 446 Interpretive Statements Sinus rhythm Atrial premature complex Probable left atrial enlargement Left ventricular hypertrophy Poor R wave progression Borderline T abnormalities, inferior leads Compared to ECG 08/01/2019 12:39:06 Atrial premature complex(es) now present Electronically Signed On 10-26-2019 8:14:32 CDT by Eder Queen [email or web address] <ELECTRONICALLY SIGNED> By: Eder Queen MD, [facility] 10/26/19 0814 Eder Queen MD, FAC /EPI
--- NOTE | 2019-10-26 08:52 | NUR ---
Pt. c/o of CP & SOA-SENIOR ADVISOR activated. see flowsheet
[2019-10-26 09:26] VITALS: BP 139/76
--- NOTE | 2019-10-26 10:08 | NUR ---
PT TRANSFERED TO @ 0900, DENIED CHEST PAIN AT THAT TIME, BP WNL. REPORT GIVEN TO NURSE RACHAEL.
[2019-10-26 11:44] VITALS: BP 129/68
--- NOTE | 2019-10-26 13:08 | NUR ---
PT TRANSFERRED TO AT 0920 AFTER SHE C/O CP PER REPORT REQUIRING A RAPID RESPONSE AND TRANSER TO TELE MONITORING. PT IS ALERT AND ORIENTED. STATES SHE DOESN'T "FEEL WELL" BUT DENIES PAIN, DOES C/O NAUSEA. UNABLE TO HAVE MEDS AT THIS TIME. WILL GIVE PRN MEDS ORDERED. VSSA/6L O2. MILD DISTRESS. LUNGS SOUND DIMINISHED. NSR. MEJIA IN PLACE. BLOOD SUGARS STABLE. PIV SL WITHOUT ISSUES. WILL CONTINUE TO MONITOR CLOSELY.
--- NOTE | 2019-10-26 14:54 | NUR ---
PT ADMITTED RELATED TO WEAKNESS AND ABDOMINAL PAIN. CM REVIEWED CHART AND SPOKE WITH CARE TEAM. CM ATTEMPTED PC TO PT'S ROOM THIS DAY WITH NO ANSWER. CM CALLED AND SPOKE WITH PT'S SON/CLARITZA CLEMENTS. HE INDICATED THAT PT RESIDES ALONE IN A RANCH STYLE HOUSE WITH 2 STEPS WITH BL HANDRAILS IN FRONT AND THREE STEPS IN BACK. 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 HE INDICATED THAT PT HAD USED [facility] IN THE PAST AND HAD BEEN ON 5N. SON INDICATED THAT HE HAD INSTALLED GRAB BARS IN PT'S BATHROOMS AND THAT HE HAD REMOVED DOOR FRAME AND INSTALLED STOOL RISER IN ONE BATHROOM WHERE PT COULD BRING FWW IN. SON INDICATED FREQUENT FALLS AND THAT HE [facility] AND THINKS THEY NEED TO LOOK INTO ALTERANTIVE LIVING AR[place]ANG[place]S [place]. HE MENTIONED [facility]. OT SAW AND RECOMMEND POST ACUTE CARE STAY. CM TO FOLLOW INDICATED WITH DC PLANNING.
[2019-10-26 16:32] VITALS: BP 165/94
[2019-10-27 04:35] VITALS: BP 147/68
--- NOTE | 2019-10-27 06:00 | NUR ---
Pt. rested quietly at intervals during the night when checked on during frequent rounds. She did c/o nausea and anitinausea meds given (see emar) with some relief noted. She has been turned and repositioned for comfort. No c/o any chest pain and heart rate regular. Bed alarm is on.
[2019-10-27 07:26] VITALS: BP 162/93
--- NOTE | 2019-10-27 12:11 | NUR ---
Received awake on bed. Due medications given as prescribed, able to swallow meds w/o difficulty. On O2 at 5lpm via nasal cannula. Vital signs stable. On heart monitoring- events saved, unable to print strips- printer still not available- robbins pre owned sales manager aware; no complaints of chest pain, heaviness or crushing sensation. On carb controlled diet- assisted and encouraged in eating and drinking- no vomiting and abdominal pain noted. On blood sugar monitoring- taken and recorded accordingly; with sliding scale insulin prescribed- given as ordered. With ulrich in place- draining well, output measured and recorded accordingly. Complained of nausea, PRN medication given as prescribed. With SL at L FA- dressing C/D/I; flushing well. With redness on her buttocks, skin intact- pt turned on her sides regularly. Assisted in ADLs. Pt seen and examined by Dr Dominguez; consults for Dr Harris and Dr Miller called in by US- a/w rounds. For CT head w/o contrast- done; pt returned to room safely. For IR spine kyphoplasty tomorrow- NPO post midnight- knife glazer nurse to be informed. To continue monitoring patient.
--- NOTE | 2019-10-27 14:04 | NUR ---
ON-GOING ASSESSMENT: CM REVIEWED CHART AND SPOKE WITH PATIENTS SON/CLARITZA CLEMENTS. SNF IS RECOMMENDED AT DISCHARGE AND CM DISCUSSED THIS WITH SON. HE REPORTS HE HAS BEEN LOOKING INTO ALTERNATE LIVING ARRANGEMENTS FOR HIS MOTHER [place]LY [place]. HE REPORTS HE HAS MADE CALLS OUT TO [facility] AND [facility]. CM DISCUSSED SNF AND HE WANTED REFERRALS SENT TO THOSE PLACES. CM ATTEMPTED TO CONTACT PATIENT IN HER ROOM BUT NO ANSWER AT THIS TIME. CM REQUESTED GLOST TILE SHADER TO [facility] REFERRALS TO [facility] AND [facility].
--- NOTE | 2019-10-27 14:07 | NUR ---
FAXED REFERRAL TO [facility] SPOKE WITH MICHAEL IN ADM SHE RECEIVED REFERRAL AND WILL REVIEW. FAXED REFERRAL TO [facility] RECEIVED CONFIRMATION AND LEFT MSG WITH WERO IN ADM. DP TO FOLLOW.
[2019-10-27 14:11] LABS: PROTIME 10.2 Seconds (9.3-11.4)
[2019-10-27 15:44] VITALS: BP 141/78
[2019-10-27 20:38] VITALS: BP 154/91
--- NOTE | 2019-10-28 03:44 | NUR ---
ASSUMED CARE OF PT AT 1900HRS. PT IS AOX4 BUT IS FOGETFUL AT TIMES. FALL PRECAUTION IN PLACE. MEJIA IN PLACE AND IS PATIENT WITH CLEAT/ORANGE URINE. PT HAD A LOOSE BM THIS SHIFT. PT TURNED Q2-3H. PT PLACED NPO AT TN FOR A PRTCEDURE IN THE AM. PT WAS SR ON THE TELE THIS SHIFT. PT WAS ABLE TO SLEEP PART OF THE SHIFT. VSS AND NO S/S OF ACUTE DISTRESS. WILL CONTINUE TO MONITOR FOR CHANGES.
[2019-10-28 04:01] VITALS: BP 134/64
[2019-10-28 07:33] VITALS: BP 165/78
[2019-10-28 10:50] VITALS: BP 140/64
--- NOTE | 2019-10-28 14:03 | NUR ---
FAXED REFERRAL TO [facility] RECEIVED CONFIRMATION AND LEFT MSG WITH ADM.DEPT. DP TO FOLLOW.
--- NOTE | 2019-10-28 15:08 | NUR ---
[facility] INDICATED THEY CAN ACCEPT, [facility] INDICATED THEY CAN ACCEPT. SON INDICATED THEY DON'T WANT J[facility] AND ASKED THAT REFERRAL BE SENT TO [facility] FOR REVIEW WELL. [facility] ALSO CONSULTED AND INDICATED THEY CAN ACCEPT. CM NOTIFIED SON AND HE IS GOING TO TOUR [facility] AND [facility] IF HE'S ABLE THIS EVENING. CM FOLLOWING INIDCATED WITH DC PLANNING.
--- NOTE | 2019-10-28 15:30 | NUR ---
SPOKE WITH JOSÉ LUIS IN ADM AT [facility] SHE REVIEWED REFERRAL AND WILL ACCEPT AT [place]. DP TO FOLLOW.
[2019-10-28 16:18] VITALS: BP 172/88
[2019-10-28 19:35] VITALS: BP 151/66
--- NOTE | 2019-10-28 19:42 | NUR ---
Assumed pt care this am, alert and oriented x 4. Kyphoplasty done this am, VS stable. Small bouts of loose bowel movements through out the day d/t mg citrate that was given the day before. Aceves cat in place draining orange urine d/t medications taken. Spoke to the son who insisted for a GI consult d/t diarrhea that has been a problem at home, spoke the the pt with regards to the concerns of the son, pt stated that she did not have diarrhea prior to admition and she normally takes 2 to 3 days before she had a bm. Plan is to go to rehab, blood sugar checks done, no insulin has been needed as per emar. POC followed with no signs or verbalizations of distress have been noted. Enldorsed to the night nurse.
--- NOTE | 2019-10-29 01:53 | NUR ---
ASSUMED CARE OF PT AT 1900HRS. PT AOX4 BUT CAN BE FORGETFUL. FALL PRECAUTION IN PLACE. PT CALLS FOR HELP NEEDED. MEIJA IS IN PLACE AND PAITIENT WITH CLEAR, ORANGE URINE R/T MEDICATION. PT IS POST KYPHOPLASTY DAY 0 AND COMFORTABLE. PT DENIED PAIN AND NAUSEA. PT COMPLAINED OF SOME SOA AND SATS AT 92% ON RA. 2L O2 VIA NC APPLIED. PT NEEDED INSULIN AT HS. PT WAS ABLE TO GET COMFORTABLE AND SLEEP PART OF THE SHIFT. VSS AND NO S/S OF ACUTE DISTRESS. WILL CONTINUE TO MONITOR FOR CHANEGES.
[2019-10-29 05:35] VITALS: BP 160/73
[2019-10-29 08:45] VITALS: BP 161/73
[2019-10-29 09:24] VITALS: BP 151/83
--- NOTE | 2019-10-29 09:43 | NUR ---
BP : 160/73 and then 151/83. Dr. Dominguez notified, asking the staff to keep monitoring.
--- NOTE | 2019-10-29 09:59 | NUR ---
PATIENT SEEN BY DR. CLAIRE ON 10/28/19 FOR REHAB CONSULT. PATIENT IS A CANDIDATE FOR ACUTE REHAB AND CAN BE ACCEPTED FOR ADMISSION TO IF DESIRED BY PATIENT/DPOA. BED AVAILABLE FOR ADMISSION WHEN PATIENT IS MEDIALLY READY. SOCAIL WORKER INFORMED. THANK YOU FOR THIS REFERRAL!
--- NOTE | 2019-10-29 14:13 | PATH ---
[facility] [address] [place] [address] PATHOLOGY RPT PROCEDURE Name: PETROS MCCAULYE Room #: 455-P ADM IN M.R.#: [id number] Admission: 10/24/19 Date of : 30 Discharge: Report #: [id number] Path Case #: [id number] Note [facility] Accession Number: [id number] TESTS RESULT FLAG UNITS REF RANGE LAB Clinician Provided Cytology Information No. of containers..01 Other (Miscellaneous) Source: URINE DIAGNOSIS: 02 URINE NEGATIVE FOR HIGH-GRADE UROTHELIAL CARCINOMA (MAGUC). BENIGN UROTHELIAL CELLS ARE PRESENT. SCANT CELLULARITY. SQUAMOUS EPITHELIAL CELLS, MACROPHAGES AND BACTERIAL AGGREGATES. Pathologist ICD10: 02 R53.1 Signed out by: 02 Dorinda Jarvis MD, Pathologist NPI- [id number] Performed by: 01 Alina Murphy, Liquid Hydrogen Plant Operator ([facility]) Gross description: 01 20ML, CLOUDY YELLOW, 1TP /LCS 10/27/2019 0636 Local FLAG LEGEND: L-Low Normal,H-High Normal,LL-Alert Low,HH-Alert High <-Panic Low,>-Panic High,A-Abnormal,AA-Critical Abnormal Performed at: [address] [place] [address] Sorin Chau MD, [address] [address] Dorinda Jarvis MD, Specimen Comment: A courtesy copy of this report has been sent to [phone] Specimen Comment: Report sent to Specimen Comment: A duplicate report has been generated due to demographic updates. Performed at: [address], [place], [place] [address] MD Sorin Chau MD Phone: [phone]
--- NOTE | 2019-10-29 15:14 | NUR ---
PT IS TO DISCHARGE TO [facility] THIS DAY SKILLED THEN TRANSITION [place]. SON IS AWARE AND AGREEABLE. CHART COPY ORDERED. ORDERS FAXED. REPORT TO BE CALLED TO . [facility] TO PICK PT UP BETWEEN [phone]. NO OTHER CM INTERVENTION INDICATED. CASE CLOSED.
[2019-10-29 15:27] VITALS: BP 137/80
--- NOTE | 2019-10-29 16:10 | NUR ---
Assumed patient care around 7am; calm and pleasant; BP elevated, Dr. Dominguez was aware of it. denied pain. no n/v. had a rest in the chair, tolerated well. complained of abdomen pain, pain medication given and work. Alberto Ayala was aware of the pain.
== END 2019-10-29 17:59 | DRG 515 ==
LOC: ER 10:45 → EROBS 14:38 → 4S 14:38 → 4W 14:38 → 4S 16:22 → 4W 10-26 09:19
PROVIDERS: Emergency Medicine; Nuclear Medicine Nuclear Cardiology; Psychiatry & Neurology Neurology; ADMIT Hospitalist
PROC: 0PU43JZ Supplement Thoracic Vertebra with Synthetic Substitute, Percutaneous Approach (ICD-10-PCS; principal; 2019-10-28)
PROC: 0PS43ZZ Reposition Thoracic Vertebra, Percutaneous Approach (ICD-10-PCS; principal; 2019-10-28)
PROC: BR171ZZ Fluoroscopy of Thoracic Spine using Low Osmolar Contrast (ICD-10-PCS; principal; 2019-10-28)
DX: M80.88XA Other osteoporosis with current pathological fracture, vertebra(e), initial encounter for fracture (principal); N17.0 Acute kidney failure with tubular necrosis; J96.01 Acute respiratory failure with hypoxia; N39.0 Urinary tract infection, site not specified; G20 Parkinson's disease; R13.10 Dysphagia, unspecified; E11.9 Type 2 diabetes mellitus without complications; E78.5 Hyperlipidemia, unspecified; I10 Essential (primary) hypertension; G89.29 Other chronic pain; M54.9 Dorsalgia, unspecified; K59.00 Constipation, unspecified; F41.9 Anxiety disorder, unspecified; Z60.2 Problems related to living alone; E87.6 Hypokalemia; B96.1 Klebsiella pneumoniae [K. pneumoniae] as the cause of diseases classified elsewhere; Z85.51 Personal history of malignant neoplasm of bladder; Z85.3 Personal history of malignant neoplasm of breast; Z88.2 Allergy status to sulfonamides; Z79.899 Other long term (current) drug therapy
CPT/HCPCS: 10045; 10195

== ENCOUNTER 2019-11-02 21:33 | Inpatient (IN) | payer OTHER, BC ==
[~2019-11-02] VITALS: Ht 157.5 cm; Wt 58.2 kg
[~2019-11-02 21:33] MED LIST changes: +ASPERCREME1 EACH TOP; +BENTYL 10 MG CA10 MG PO; +FLONASE 0.05%50 MCG NARES
[2019-11-02 21:37] VITALS: BP 187/111
[2019-11-02 22:47] LABS: ABSOLUTE NEUTROPHILS 12.2 thou/uL (1.4-8.2); BASOPHILS 0.3 % (0.0-2.0); EOSINOPHILS 0.1 % (0.0-3.0); HEMATOCRIT 43.8 % (37.0-47.0); HEMOGLOBIN 14.3 gm/dL (12.0-15.0); LYMPHOCYTES 3.4 % (24.0-44.0); MCH 27.9 pg (26.0-34.0); MCHC 32.6 g/dL (28.0-37.0); MCV 85.4 fL (80.0-100.0); MONOCYTES 6.4 % (1.0-8.0); PLATELET COUNT 217 thou/uL (150-400); POLYS 89.8 % (36.0-66.0); RBC 5.13 mil/uL (4.20-5.00); WBC 13.6 thou/uL (4.0-11.0)
[2019-11-02 23:13] LABS: CALCIUM 9.4 mg/dL (8.5-10.1); CREATININE 1.6 mg/dL (0.6-1.0); POTASSIUM 3.1 mmol/L (3.5-5.1); TOTAL BILIRUBIN 0.4 mg/dL (<0.1-1.0)
[2019-11-02 23:24] LABS: URINE BILIRUBIN NEGATIVE (Negative); URINE BLOOD NEGATIVE (Negative); URINE CLARITY CLEAR; URINE COLOR YELLOW; URINE GLUCOSE-RANDOM* NEGATIVE (Negative); URINE KETONES 1+ (Negative); URINE LEUKOCYTES-REFLEX NEGATIVE (Negative); URINE NITRITE-REFLEX NEGATIVE (Negative); URINE PROTEIN (DIPSTICK) 1+ (Negative); URINE SPECIFIC GRAVITY 1.025 (1.005-1.035); URINE UROBILINOGEN 0.2 E.U./dl (0.2-1.0)
--- NOTE | 2019-11-02 23:28 | NUR ---
NOTIFIED ED PHYSICIAN OF CRITICAL LAB OF 6.2 AT 8602
[2019-11-02 23:59] LABS: BACTERIA-REFLEX 1-9 Few /HPF (None Seen); HYALINE CASTS 0-3 Few /LPF (None Seen); MUCUS 0-3 Light strn/LPF (None Seen); SQUAMOUS 0-3 Few /LPF (0-3); URINE RBC 0-2 Rare /HPF (0-2); URINE WBC-REFLEX 0-5 Rare /HPF (0-5)
[2019-11-03] VITALS (39 sets, daily range): BP systolic 125–180; BP diastolic 53–98
[2019-11-03] LABS: CRYSTALS None Seen /LPF (None Seen)
--- NOTE | 2019-11-03 04:10 | NUR ---
HOSPITALIST AND ED PHYSICIAN DISCUSSING PLACEMENT OF PATIENT
[2019-11-03 04:41] LABS: BE(vivo) 4.1 mmol/L (-2 to +3); HCO3 27.7 mmol/L (22.0-26.0); PCO2 38.1 mmHg (35.0-45.0); sO2 93.6 % (92.0-98.0)
[2019-11-03 05:22] LABS: CALCIUM 8.2 mg/dL (8.5-10.1); CREATININE 1.2 mg/dL (0.6-1.0); POTASSIUM 3.7 mmol/L (3.5-5.1)
[2019-11-03 05:58] LABS: HEMATOCRIT 37.4 % (37.0-47.0); HEMOGLOBIN 12.6 gm/dL (12.0-15.0); MCH 28.5 pg (26.0-34.0); MCHC 33.7 g/dL (28.0-37.0); MCV 84.5 fL (80.0-100.0); RBC 4.43 mil/uL (4.20-5.00); RDW 14.4 % (10.5-14.5); WBC 10.2 thou/uL (4.0-11.0)
--- NOTE | 2019-11-03 07:39 | NUR ---
RECIEVED PT FROM ER AT 0545. PT ALERT, LETHARGIC. RR 30'S. 02SAT 92, PLACED ON 3L NC. MONITOR SHOWS ST. SBP 170'-TAKES ANTIHYPERTENSIVES MEDS AT HOME. DENIES ANY CHEST PAIN. UNABLE TO VOID PER BEDPAN, REFUSED MEJIA AT THIS TIME. REPORT GIVEN TO NEXT SHIFT
--- NOTE | 2019-11-03 08:05 | EKG ---
[facility] [place] [address] ELECTROCARDIOGRAM REPORT Name: PETROS MCCAULEY Room #: [facility]P ADM IN M.R.#: [id number] Admission: 11/03/19 Attend Phys: Marcos Martínez Discharge: Date of : 30 Report #: [id number] THIS REPORT FOR: cc: FAM - Family physician unknown FAM - Family physician unknown Eder Queen MD [facility] THIS REPORT FOR: //name// [facility] ED Test Date: 2019-11-02 Test Time: 22:50:13 Pat Name: PETROS MCCAULEY Department: Room: [facility] Gender: F Comedian: GUESTJ : 1930 Requested By: Skyler Weems Order Number: [id number] MD: Eder Queen Measurements Intervals [place] Rate: 100 P: 8 OR: 186 QRS: -39 QRSD: 101 T: -23 QT: 382 QTc: 493 Interpretive Statements Sinus tachycardia Nonspecific ST and T wave abnormality Poor R wave progression Borderline prolonged QT interval Baseline wander in lead(s) I,II,III,aVR,aVL Compared to ECG 10/26/2019 07:48:14 No significant change was found Electronically Signed On 11-03-2019 8:03:37 CDT by Eder Queen [email or web address] <ELECTRONICALLY SIGNED> By: Eder Queen MD, [facility] 11/03/19 0803 49 49 Eder Queen MD, [facility] /EPI
--- NOTE | 2019-11-03 10:47 | NUR ---
PT ALERT AND ORIENTED TIMES THREE WITH PERIODS OF CONFUSION. BP ELEVATED DR. SAHU, OTHER VSS. 98%3L, IVF INFUSING PER ORDER. MEJIA CATH PLACED THIS MORNING. SR ON TELE. PT DENIES PAIN AT THIS TIME. SPOKE WITH DAUGHTER TO KIA ON PT CARE. WILL CONTINUE TO MONITOR.
[2019-11-03 13:22] LABS: CHOLESTEROL 88 mg/dL (<200); HDL CHOLESTEROL 35 mg/dL (>40); LDL CHOLESTEROL 36 mg/dL (<100); TC:HDL 2.5 Ratio (Not establshd); TRIGLYCERIDE 89 mg/dL (<150); VLDL 18 mg/dL (<40)
--- NOTE | 2019-11-03 15:02 | NUR ---
ASSESSMENT: CM REVIEWED CHART AND SPOKE WITH ATTENDING. PT WAS ADMITTED WITH N/V/D AND ELEVATED LACTATE. PT IS IN ENHANCED ISOLATION TO RULE OUT COVID 19, FIRST TEST IS NEGATIVE. PT IS FROM LTC AT [facility]. CM SPOKE W PATIENTS DAUGHTER JAYLEN AND SON STARR WELL. PT USES A WHEELCHAIR MAJORITY OF THE TIME. CM SPOKE WITH ADMISSIONS AT [facility] TO UPDATE ON CLINICAL AND FAXED UPDATES INCLUDING NEGATIVE COVID TEST. 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 PT HAD CTA THAT DID NOT SHOW ANY ACUTE FINDINGS. GI IS FOLLOWING PT AND MAY CONSIDER AN EGD ONCE MEDICALLY STABLE TO DO SO. CM WILL CONTINUE TO FOLLOW TO ASSIST NEEDED. PLANS ARE TO RETURN TO [facility] ONCE MEDICALLY STABLE.
--- NOTE | 2019-11-03 20:25 | NUR ---
RELEASING CARE OF PATIENT TO FRED RN AT THIS TIME, REPORT GIVEN. VITALS STABLE.
[2019-11-04] VITALS (27 sets, daily range): BP systolic 115–150; BP diastolic 59–77
--- NOTE | 2019-11-04 07:50 | NUR ---
pt alert and oriented X3. pt on 3 L NC. urine output minimally adequate. pt hypertensive at times. prn hydralazine given. chart check. continue to monitor.
--- NOTE | 2019-11-04 09:54 | NUR ---
RN ASSUMED CARE OF PATIENT AT 0800. PATIENT ALERT AND ORIENTED. NO MAJOR CONCERNS, ORDERS FOR TRANSFER TO MED SURG.
--- NOTE | 2019-11-04 17:02 | NUR ---
SW reviewed chart and spoke with nursing and attending physician. Pt's COVID-19 test is negative. Pt is c.diff positive. Therapy ordered today to evaluate pt for recommendation for level of care at time of discharge. Pt may transfer out of ICU when bed available. senior program planner to fax clinical updates/therapy evals to [facility] when available. Pt to discharge back to [facility] in 1-2 days. RICARDO is following to assist as needed with discharge planning.
--- NOTE | 2019-11-04 19:22 | NUR ---
89 YO FEMALE TRANSFERED TO 456 FROM ICU. A&OX3-4 SLIGHT CONFUSION. IV INTACT IN R EJ AND JOSE. MEJIA TO DD, DARK YELLOW URINE. ORIENTED PT TO ROOM/ CALL LIGHT.
--- NOTE | 2019-11-05 02:19 | NUR ---
ASSUMED CARE ON 11/04/19 @ 19:30, ON LIQUID DIET, NPO AT MIDNIGHT. ON CDIFF PRECAUTIONS. VANCO PO PROVIDED JUST BEFORE MIDNIGHT. SPO2 100% ON 3L N/C. RESTING QUIETLY IN BED WITH EYES CLOSED, RESPIRATIONS EVEN AND UNLABORED.
[2019-11-05 04:54] LABS: HEMATOCRIT 35.6 % (37.0-47.0); HEMOGLOBIN 11.6 gm/dL (12.0-15.0); MCH 28.3 pg (26.0-34.0); MCHC 32.7 g/dL (28.0-37.0); MCV 86.7 fL (80.0-100.0); RBC 4.11 mil/uL (4.20-5.00); RDW 14.8 % (10.5-14.5); WBC 7.6 thou/uL (4.0-11.0)
[2019-11-05 05:17] LABS: CALCIUM 7.6 mg/dL (8.5-10.1); CREATININE 0.8 mg/dL (0.6-1.0)
[2019-11-05 05:26] LABS: POTASSIUM 2.7 mmol/L (3.5-5.1)
[2019-11-05 06:35] VITALS: BP 148/80
[2019-11-05 07:34] VITALS: BP 158/62
--- NOTE | 2019-11-05 10:36 | NUR ---
FAXED CLINICAL UPDATE TO [facility] RECEIVED CONFIRMATION AND LEFT MSG FOR WERO IN ADM.
--- NOTE | 2019-11-05 15:22 | NUR ---
PT IS AOX4, NO PAIN AT THIS TIME. PT RECEIVED ATIVAN X1 FOR ANXIETY. POOR APPETITE, TOLERATES CLEAR LIQUID DIET. PT HAD 1 FORMED BM. IJ IV IS PATENT FOR ANTIBIOTIC THERAPY. PT CALLS APPROPRIATELY, REMAINS OF C DIFF PRECAUTIONS. WILL CONTINUE TO MONITOR.
[2019-11-05 15:35] VITALS: BP 134/66
--- NOTE | 2019-11-05 16:10 | NUR ---
CARE TEAM INDICATED THAT PT MAY BE MEDICALLY STABLE FOR POSSIBLE DC BACK TO [facility] TOMORROW. CLINICAL UPDATE AND POSSIBLE DC NOTIFICATION CONVEYED TO FACILITY. CM TO FOLLOW INDICATED WITH DC PLANNING.
[2019-11-05 20:20] VITALS: BP 160/79
[2019-11-06 06:06] VITALS: BP 161/83
--- NOTE | 2019-11-06 07:58 | NUR ---
RECIEVED CARE OF THIS PATIENT OF THIS PATIENT AT 1900. PATIENT ALERT AND ORIENTED X4. UP TO BATHROOM WITH SBA. LIMB ALERT ON THE R. HAS R EXTERNAL JUGULAR. ACCUCJ=[id number]. NPO SINCE MN EXCEPT SIPS WITH MORNING MEDS. DENIES PAIN. SLEPT MOST OF THE NIGHT.
[2019-11-06 11:28] VITALS: BP 163/85
[2019-11-06 14:46] VITALS: BP 146/69
--- NOTE | 2019-11-06 15:51 | NUR ---
PT HAD EGD WITH DILATION TODAY. IT IS ANTICPATED THAT PT MAY BE MEDICALLY STABLE TO DC BACK TO [facility] TOMORROW Saturday11/07/19. FACILITY HAD BEEN NOTIFIED OF THIS AND ARE ABLE TO ACCEPT PT BACK. CM NOTIFIED PT'S SON HE IS ALSO AGREEABLE. CHART COPY ORDERED. ORDERS TO BE FAXED TO . REPORT TO BE CALLED TO . CALL [facility] FOR VAN TRANSPORT AT .
[2019-11-06 20:15] VITALS: BP 157/87
--- NOTE | 2019-11-07 04:03 | NUR ---
Pt. rested quietly during the night when checked on during frequent rounds. Isolation precautions in place for c-diff. Pt. has not any loose stools during the shift. She denies any c/o pain. Bed alarm is on.
[2019-11-07 07:50] VITALS: BP 156/76
[2019-11-07 08:36] VITALS: BP 156/76
[2019-11-07] MEDS ORDERED: FIRVANQ50 MG/1 ML PO (10:08)
--- NOTE | 2019-11-07 16:13 | NUR ---
PT IS AOX3, VSS, NO C/O PAIN. PT TOLERATING DIET WELL. PT WAITING ON TRANSPORTATION TO TAKE HER BACK TO [facility]. NURSE PULLED IV AND MEJIA. UP AD SANTI WITH WALKER AND PT HAD 2 BM'S. PT RECEIVED VANCOMYCIN ORALLY. CALL LIGHT IN REACH, WILL CONTINUE TO MONITOR.
== END 2019-11-07 16:39 | DRG 371 ==
LOC: ER 21:33 → EROBS 11-03 02:57 → ICU 11-03 02:57 → 3W 11-03 03:56 → ICU 11-03 05:48 → 4W 11-04 16:38
PROVIDERS: Emergency Medicine; Nurse Practitioner Family; ADMIT Hospitalist
PROC: 0D758ZZ Dilation of Esophagus, Via Natural or Artificial Opening Endoscopic (ICD-10-PCS; principal; 2019-11-06)
DX: A04.72 Enterocolitis due to Clostridium difficile, not specified as recurrent (principal); N17.0 Acute kidney failure with tubular necrosis; E87.2 Acidosis; N39.0 Urinary tract infection, site not specified; E44.0 Moderate protein-calorie malnutrition; B96.89 Other specified bacterial agents as the cause of diseases classified elsewhere; Z68.23 Body mass index [BMI] 23.0-23.9, adult; E11.9 Type 2 diabetes mellitus without complications; E78.5 Hyperlipidemia, unspecified; I10 Essential (primary) hypertension; G20 Parkinson's disease; R06.82 Tachypnea, not elsewhere classified; C50.911 Malignant neoplasm of unspecified site of right female breast; K59.00 Constipation, unspecified; R13.10 Dysphagia, unspecified; F41.9 Anxiety disorder, unspecified; M54.9 Dorsalgia, unspecified; E55.9 Vitamin D deficiency, unspecified; E87.6 Hypokalemia; E86.0 Dehydration; Z03.818 Encounter for observation for suspected exposure to other biological agents ruled out; Z79.84 Long term (current) use of oral hypoglycemic drugs; Z79.891 Long term (current) use of opiate analgesic; Z88.2 Allergy status to sulfonamides; Z99.81 Dependence on supplemental oxygen; R47.02 Dysphasia
CPT/HCPCS: 10040; 10078; 10203; 62110; 62900